=== PATIENT | female | born 1975 | race Hispanic/Latino ===

== ENCOUNTER 2023-03-02 12:44 | Emergency (ER) | payer BC ==
--- OUTSIDE RECORDS SUMMARY | 2023-03-02 12:50 | XMS REPORT | Continuity of Care Document ---
:1975 Author Organization [facility] t Address [address] [facility] [address] [place] [id number] Care Team Providers Name Role Phone PCP, PATIENT DOES NOT HAVE A Primary Care Physician Unavailkiersten Osman RN, Rosalie Pierson Attending Clinician Ioana Yee LVN Attending Clinician Stefanie Macedo DO Attending Clinician Peterson Kaminski MD Attending Clinician PETERSON KAMINSKI Attending Clinician Unavailable Lab, Adc Fam Pob I Attending Clinician Unavailable Ben Coker Attending Clinician BEN JACKSON Attending Clinician Unavailable Doctor Unassigned, [place] Attending Clinician Unavailable Peterson Kaminski MD Admitting Clinician PETERSON KAMINSKI Admitting Clinician Unavailable Payers Payer Name Policy Type Policy Number Effective Date Expiration Date S ourbenson COVID19 [facility] [id number] 2020 2020 UNINSURED 00:00:00 00:00:00 Problems Condition Condition Condition Status Onset Resolution Last Treating Co mments Source Name Details Category Date Date Treatment Clinician Date Morbid Morbid Disease Active Univers obesity obesity 8-24 [place] mass index 00 [place] of of Branch 40.0-49.9 40.0-49.9 COVID-19 COVID-19 Disease Active Unive rs 8-24 ity of 00:00: [place] [address] [place] [address] Branch Morbid Morbid Disease Active Univers obesity obesity 8-24 [place] of with body [place] mass index 00 Me dical of of Branch 40.0-49.9 40.0-49.9 HTN HTN Diagnosis Active Common (hypertens (hypertens Sp william ion), ion), - [facility] benign benign [facility] Encounter Encounter Diagnosis Active C ommon for for Spirit preventati preventati - [facility] ve adult ve adult [facility] care exam care exam Medi lilibeth with with Center abnormal abnormal findings findings Atypical Atypical Diagnosis Active Com mon chest pain chest pain Sp william - [facility] Adult BMI Adult BMI Diagnosis Active C ommon 50.0-59.9 50.0-59.9 Spir it kg/sq m kg/sq m [facility] Allergies, Adverse Reactions, Alerts Allergy Allergy Status Severity Reaction(s) Onset Inactive Treating Comm ents Source Name Type Date Date Clinician NO KNOWN Drug Active Univers ALLERGIE Class ity of S [facility] Social History Social Habit Start Date Stop Date Quantity Comments Source Exposure to Yes [facility]-CoV-2 [facility] (event) [place] Tobacco use and 2020-11-24 2020-11-24 Never used Universit y of exposure 00:00:00 00:00:00 [facility] Alcohol intake 2020-11-24 2020-11-24 Ex-drinker [facility] 00:00:00 00:00:00 (finding) [facility] Sex Ass[birth year] Universit y of 00:00:00 00:00:00 [facility] Smoking Status Start Date Stop Date Source Unknown if ever smoked Universit y of [facility] Never smoker [facility] Medications Ordered Filled Start Stop Current Ordering Indication Dosage Frequency Signature Comments Components Source Medication Medication Date Date Medication? Clinician (SIG) Name Name enoxaparin Yes 40mg 40 mg, Unive rs (LOVENOX) 11-27 Subcutaneo ity of injection 01:00: us, Q12H, [place] 40 mg 00 First dose Medical on [place] 11/26/20 at 1999, Until Discontinu ed, Routine enoxaparin 2020-0 Yes 40mg 40 mg, Unive rs (LOVENOX) 8-27 Subcutaneo ity of injection 01:00: us, Q12H, [place] as 40 mg 00 First dose Medical on [place] Branch 11/26/20 at 1999, Until Discontinu ed, Routine cholecalcif 2020-0 Yes [id number] 1999U Take 2 Univers kulwinder, 8-27 tablets by ity of vitamin D3, 00:00: mouth [place] 25 mcg 00 daily. Medical (1,000 Branch unit) tablet zinc 2020-0 Yes [id number] 220mg Take 1 Univer s sulfate 50 8-27 capsule by ity of mg zinc 00:00: mouth [place] (220 mg) 00 daily. Medical capsule Branch cholecalcif 2020-0 Yes [id number] 1999U Take 2 Univers kulwinder, 8-27 tablets by ity of vitamin D3, 00:00: mouth [place] 25 mcg 00 daily. Medical (1,000 Branch unit) tablet zinc 2020-0 Yes [id number] 220mg Take 1 Univer s sulfate 50 8-27 capsule by ity of mg zinc 00:00: mouth [place] (220 mg) 00 daily. Medical capsule Branch cholecalcif 2020-0 Yes [id number] 2000U Take 2 Univers kulwinder, 8-27 tablets by ity of vitamin D3, 00:00: mouth [place] 25 mcg 00 daily. Medical (1,000 Branch unit) tablet zinc 2020-0 Yes [id number] 220mg Take 1 Univer s sulfate 50 8-27 capsule by ity of mg zinc 00:00: mouth [place] (220 mg) 00 daily. Medical capsule Branch cholecalcif 2020-0 Yes [id number] 2000U Take 2 Univers kulwinder, 8-27 tablets by ity of vitamin D3, 00:00: mouth [place] 25 mcg 00 daily. Medical (1,000 Branch unit) tablet zinc 1-0 Yes [id number] 220mg Take 1 Univer s sulfate 50 8-27 capsule by ity of mg zinc 00:00: mouth [place] (220 mg) 00 daily. Medical capsule Branch cholecalcif 2020-0 Yes [id number] 2000U Take 2 Univers kulwinder, 8-27 tablets by ity of vitamin D3, 00:00: mouth [place] 25 mcg 00 daily. Medical (1,000 Branch unit) tablet zinc 2020-0 Yes [id number] 220mg Take 1 Univer s sulfate 50 8-27 capsule by ity of mg zinc 00:00: mouth [place] (220 mg) 00 daily. Medical capsule Branch cholecalcif 2020-0 Yes [id number] 2000U Take 2 Univers kulwinder, 8-27 tablets by ity of vitamin D3, 00:00: mouth [place] 25 mcg 00 daily. Medical (1,000 Branch unit) tablet zinc 2020-0 Yes [id number] 220mg Take 1 Univer s sulfate 50 8-27 capsule by ity of mg zinc 00:00: mouth [place] (220 mg) 00 daily. Medical capsule Branch cholecalcif 2020-0 Yes [id number] 2000U Take 2 Univers kulwinder, 8-27 tablets by ity of vitamin D3, 00:00: mouth [place] 25 mcg 00 daily. Medical (1,000 Branch unit) tablet zinc 2020-0 Yes [id number] 220mg Take 1 Univer s sulfate 50 8-27 capsule by ity of mg zinc 00:00: mouth [place] (220 mg) 00 daily. Medical capsule Branch cholecalcif 2020-0 Yes [id number] 2000U Take 2 Univers kulwinder, 8-27 tablets by ity of vitamin D3, 00:00: mouth [place] 25 mcg 00 daily. Medical (1,000 Branch unit) tablet zinc 2020-0 Yes [id number] 220mg Take 1 Univer s sulfate 50 8-27 capsule by ity of mg zinc 00:00: mouth [place] (220 mg) 00 daily. Medical capsule Branch cholecalcif 2020-0 Yes [id number] 2000U Take 2 Univers kulwinder, 8-27 tablets by ity of vitamin D3, 00:00: mouth [place] 25 mcg 00 daily. Medical (1,000 Branch unit) tablet zinc 1-0 Yes [id number] 220mg Take 1 Univer s sulfate 50 8-27 capsule by ity of mg zinc 00:00: mouth [place] (220 mg) 00 daily. Medical capsule Branch cholecalcif 2020-0 Yes [id number] 2000U Take 2 Univers kulwinder, 8-27 tablets by ity of vitamin D3, 00:00: mouth [place] 25 mcg 00 daily. Medical (1,000 Branch unit) tablet zinc 2021-0 Yes [id number] 220mg Take 1 Univer s sulfate 50 8-27 capsule by ity of mg zinc 00:00: mouth [place] (220 mg) 00 daily. Medical capsule Branch cholecalcif 0 Yes [id number] 2000U Take 2 Univers kulwinder, 8-27 tablets by ity of vitamin D3, 00:00: mouth [place] 25 mcg 00 daily. Medical (1,000 Branch unit) tablet zinc 0 Yes [id number] 220mg Take 1 Univer s sulfate 50 8-27 capsule by ity of mg zinc 00:00: mouth [place] (220 mg) 00 daily. Medical capsule Branch ascorbic Yes [id number] 1000mg Take 1 U nivers acid, 8-26 tablet by ity of vitamin C, 00:00: mouth [place] 1,000 mg 00 daily. Medical tablet Branch glipiZIDE Yes [id number] 10mg Take 1 Un jc 10 mg 8-26 tablet by ity of tablet 00:00: mouth 2 [place] (two) Medical times Branch daily before breakfast and dinner. metFORMIN Yes [id number] 500mg Take 1 U nivers 500 mg 8-26 tablet by ity of tablet 00:00: mouth 2 (two) Medical times Branch daily with meals. atorvastati Yes [id number] 20mg Take 1 Univers n 20 mg 8-26 tablet by ity of tablet 00:00: mouth at [place] 00 bedtime. Medical Branch ascorbic 0 Yes [id number] 1000mg Take 1 U nivers acid, 8-26 tablet by ity of vitamin C, 00:00: mouth [place] 1,000 mg 00 daily. Medical tablet Branch glipiZIDE Yes [id number] 10mg Take 1 Un jc 10 mg 8-26 tablet by ity of tablet 00:00: mouth 2 [place] (two) Medical times Branch daily before breakfast and dinner. metFORMIN 0 Yes [id number] 500mg Take 1 U nivers 500 mg 8-26 tablet by ity of tablet 00:00: mouth 2 (two) Medical times Branch daily with meals. atorvastati 0 Yes [id number] 20mg Take 1 Univers n 20 mg 8-26 tablet by ity of tablet 00:00: mouth at [place] 00 bedtime. Medical Branch ascorbic 0 Yes [id number] 1000mg Take 1 U nivers acid, 8-26 tablet by ity of vitamin C, 00:00: mouth [place] 1,000 mg 00 daily. Medical tablet Branch glipiZIDE 0 Yes [id number] 10mg Take 1 Un jc 10 mg 8-26 tablet by ity of tablet 00:00: mouth 2 (two) Medical times Branch daily before breakfast and dinner. metFORMIN 0 Yes [id number] 500mg Take 1 U nivers 500 mg 8-26 tablet by ity of tablet 00:00: mouth 2 [place] (two) Medical times Branch daily with meals. atorvastati Yes [id number] 20mg Take 1 Univers n 20 mg 8-26 tablet by ity of tablet 00:00: mouth at [place] 00 bedtime. Medical Branch ascorbic 0 Yes [id number] 1000mg Take 1 U nivers acid, 8-26 tablet by ity of vitamin C, 00:00: mouth [place] 1,000 mg 00 daily. Medical tablet Branch glipiZIDE Yes [id number] 10mg Take 1 Un jc 10 mg 8-26 tablet by ity of tablet 00:00: mouth [place] (two) Medical times Branch daily before breakfast and dinner. metFORMIN 0 Yes [id number] 500mg Take 1 U nivers 500 mg 8-26 tablet by ity of tablet 00:00: mouth [place] (two) Medical times Branch daily with meals. atorvastati 0 Yes [id number] 20mg Take 1 Univers n 20 mg 8-26 tablet by ity of tablet 00:00: mouth at [place] 00 bedtime. Medical Branch ascorbic 2020-0 Yes [id number] 1000mg Take 1 U nivers acid, 8-26 tablet by ity of vitamin C, 00:00: mouth [place] 1,000 mg 00 daily. Medical tablet Branch glipiZIDE 0 Yes [id number] 10mg Take 1 Un jc 10 mg 8-26 tablet by ity of tablet 00:00: mouth 2 [place] (two) Medical times Branch daily before breakfast and dinner. metFORMIN 2020-0 Yes [id number] 500mg Take 1 U nivers 500 mg 8-26 tablet by ity of tablet 00:00: mouth 2 (two) Medical times Branch daily with meals. atorvastati Yes [id number] 20mg Take 1 Univers n 20 mg 8-26 tablet by ity of tablet 00:00: mouth at [place] 00 bedtime. Medical Branch ascorbic 0 Yes [id number] 1000mg Take 1 U nivers acid, 8-26 tablet by ity of vitamin C, 00:00: mouth [place] 1,000 mg 00 daily. Medical tablet Branch glipiZIDE Yes [id number] 10mg Take 1 Un jc 10 mg 8-26 tablet by ity of tablet 00:00: mouth 2 (two) Medical times Branch daily before breakfast and dinner. metFORMIN Yes [id number] 500mg Take 1 U nivers 500 mg 8-26 tablet by ity of tablet 00:00: mouth 2 (two) Medical times Branch daily with meals. atorvastati Yes [id number] 20mg Take 1 Univers n 20 mg 8-26 tablet by ity of tablet 00:00: mouth at [place] 00 bedtime. Medical Branch ascorbic Yes [id number] 1000mg Take 1 U nivers acid, 8-26 tablet by ity of vitamin C, 00:00: mouth [place] 1,000 mg 00 daily. Medical tablet Branch glipiZIDE Yes [id number] 10mg Take 1 Un jc 10 mg 8-26 tablet by ity of tablet 00:00: [place] (two) Medical times Branch daily before breakfast and dinner. metFORMIN Yes [id number] 500mg Take 1 U nivers 500 mg 8-26 tablet by ity of tablet 00:00: mouth 2 (two) Medical times Branch daily with meals. atorvastati Yes [id number] 20mg Take 1 Univers n 20 mg 8-26 tablet by ity of tablet 00:00: mouth at [place] 00 bedtime. Medical Branch ascorbic Yes [id number] 1000mg Take 1 U nivers acid, 8-26 tablet by ity of vitamin C, 00:00: mouth [place] 1,000 mg 00 daily. Medical tablet Branch glipiZIDE 2021-0 Yes [id number] 10mg Take 1 Un jc 10 mg 8-26 tablet by ity of tablet 00:00: mouth 2 (two) Medical times Branch daily before breakfast and dinner. metFORMIN 2020-0 Yes [id number] 500mg Take 1 U nivers 500 mg 8-26 tablet by ity of tablet 00:00: mouth 2 (two) Medical times Branch daily with meals. atorvastati 2020-0 Yes [id number] 20mg Take 1 Univers n 20 mg 8-26 tablet by ity of tablet 00:00: mouth at [place] 00 bedtime. Medical Branch ascorbic 2020-0 Yes [id number] 1000mg Take 1 U nivers acid, 8-26 tablet by ity of vitamin C, 00:00: mouth [place] 1,000 mg 00 daily. Medical tablet Branch glipiZIDE 0 Yes [id number] 10mg Take 1 Un jc 10 mg 8-26 tablet by ity of tablet 00:00: mouth [place] (two) Medical times Branch daily before breakfast and dinner. metFORMIN 2020-0 Yes [id number] 500mg Take 1 U nivers 500 mg 8-26 tablet by ity of tablet 00:00: mouth [place] (two) Medical times Branch daily with meals. atorvastati 0 Yes [id number] 20mg Take 1 Univers n 20 mg 8-26 tablet by ity of tablet 00:00: mouth at [place] 00 bedtime. Medical Branch ascorbic 2020-0 Yes [id number] 1000mg Take 1 U nivers acid, 8-26 tablet by ity of vitamin C, 00:00: mouth [place] 1,000 mg 00 daily. Medical tablet Branch glipiZIDE 0 Yes [id number] 10mg Take 1 Un jc 10 mg 8-26 tablet by ity of tablet 00:00: mouth (two) Medical times Branch daily before breakfast and dinner. metFORMIN 2020-0 Yes [id number] 500mg Take 1 U nivers 500 mg 8-26 tablet by ity of tablet 00:00: mouth 2 (two) Medical times Branch daily with meals. atorvastati 2020-0 Yes [id number] 20mg Take 1 Univers n 20 mg 8-26 tablet by ity of tablet 00:00: mouth at [place] 00 bedtime. Medical Branch ascorbic Yes [id number] 1000mg Take 1 U nivers acid, 8-26 tablet by ity of vitamin C, 00:00: mouth [place] 1,000 mg 00 daily. Medical tablet Branch glipiZIDE Yes [id number] 10mg Take 1 Un jc 10 mg 8-26 tablet by ity of tablet 00:00: mouth 2 [place] 00 (two) Medical times Branch daily before breakfast and dinner. metFORMIN Yes [id number] 500mg Take 1 U nivers 500 mg 8-26 tablet by ity of tablet 00:00: mouth 2 [place] 00 (two) Medical times Branch daily with meals. atorvastati Yes [id number] 20mg Take 1 Univers n 20 mg 8-26 tablet by ity of tablet 00:00: mouth at [place] 00 bedtime. Medical Branch KCL 20 mEq 2020- No [id number] 20meq Take 1 Univers tablet 11-26 tablet by ity of 00:00: 04:59 mouth [place] 00 :00 daily for Medical 7 days. Branch KCL 20 mEq 2020- No [id number] 20meq Take 1 Univers tablet 11-26 tablet by ity of 00:00: 04:59 mouth [place] 00 :00 daily for Medical 7 days. Branch KCL 20 mEq 2020- No [id number] 20meq Take 1 Univers tablet 11-26 tablet by ity of 00:00: 04:59 mouth [place] 00 :00 daily for Medical 7 days. Branch KCL 20 mEq 2020- No [id number] 20meq Take 1 Univers tablet 11-26 tablet by ity of 00:00: 04:59 mouth [place] 00 :00 daily for Medical 7 days. Branch KCL 20 mEq 0 2020- No [id number] 20meq Take 1 Univers tablet 11-26 tablet by ity of 00:00: 04:59 mouth [place] 00 :00 daily for Medical 7 days. Branch KCL 20 mEq 0 2020- No [id number] 20meq Take 1 Univers tablet 11-26 tablet by ity of 00:00: 04:59 mouth [place] 00 :00 daily for Medical 7 days. Branch KCL 20 mEq 2020- No [id number] 20meq Take 1 Univers tablet 11-26 tablet by ity of 00:00: 04:59 mouth [place] 00 :00 daily for Medical 7 days. Branch KCL 20 mEq 2020- No [id number] 20meq Take 1 Univers tablet 11-26 tablet by ity of 00:00: 04:59 mouth [place] 00 :00 daily for Medical 7 days. Branch KCL 20 mEq 2020- No [id number] 20meq Take 1 Univers tablet 11-26 tablet by ity of 00:00: 04:59 mouth [place] 00 :00 daily for Medical 7 days. Branch KCL 20 mEq 2020- No [id number] 20meq Take 1 Univers tablet 11-26 tablet by ity of 00:00: 04:59 mouth [place] 00 :00 daily for Medical 7 days. Branch cholecalcif Yes 1000U 1,000 [facility] ers kulwinder 8-25 Units, ity of (vitamin 14:00: Oral, [place] D3) tablet 00 DAILY, Medical 1,000 Units First dose Br anch on Mon11/25/20 at 0900, Until Discontinu ed, Routine zinc Yes 220mg 220 mg, Univers sulfate 8-25 Oral, ity of (ORAZINC) 14:00: DAILY, [place] capsule 220 00 First dose Me dical mg on Mon11/25/20 at 0900, Until Discontinu ed, Routine cholecalcif Yes 1000U 1,000 [facility] ers kulwinder 8-25 Units, ity of (vitamin 14:00: Oral, [place] D3) tablet 00 DAILY, Medical 1,000 Units First dose Br anch on Mon11/25/20 at 0900, Until Discontinu ed, Routine zinc Yes 220mg 220 mg, Univers sulfate 8-25 Oral, ity of (ORAZINC) 14:00: DAILY, [place] capsule 220 00 First dose Me dical mg on Mon11/25/20 at 0900, Until Discontinu ed, Routine enoxaparin 2020- No 40mg 40 mg, [facility] ers (LOVENOX) 11-25 Subcutaneo ity of injection 14:00: 20:09 us, DAILY, [place] 40 mg 00 :35 First dose Medical on Mon11/25/20 at 0900, Until Discontinu ed, Routine enoxaparin No 40mg 40 mg, Univ ers (LOVENOX) 11-25 Subcutaneo ity of injection 14:00: 20:09 us, DAILY, [place] 40 mg 00 :35 First dose Medical on Mon11/25/20 at 0900, Until Discontinu ed, Routine ascorbic Yes 500mg 500 mg, Unive rs acid 8-25 Oral, BID, ity of (vitamin C) 13:00: First dose [place] (VITAMIN C) 00 on Mon Medica l tablet 500 11/25/20 at [facility] mg 0800, Until Discontinu ed, Routine ascorbic Yes 500mg 500 mg, Unive rs acid 8-25 Oral, BID, ity of (vitamin C) 13:00: First dose [place] (VITAMIN C) 00 on Mon Medica l tablet 500 11/25/20 at [facility] mg 0800, Until Discontinu ed, Routine insulin NPH Yes 15U 15 Units, U nivers and regular 11-25 Subcutaneo it y of human 70-30 12:30: , [place], [place] (HUMULIN 00 First dose Medic al 70-30 U-100 on Mon INSULIN) 11/25/20 at 100 unit/mL 0730, (70-30) Until injection Discontinu 15 Units ed, Routine insulin NPH Yes 15U 15 Units, U nivers and regular 11-25 Subcutaneo it y of human 70-30 12:30: us, [place], [place] (HUMULIN 00 First dose Medic al 70-30 U-100 on Mon INSULIN) 11/25/20 at 100 unit/mL 0730, (70-30) Until injection Discontinu 15 Units ed, Routine albuterol-i Yes 1{puff} 1 Puff, Univers pratropium 11-25 Inhalation ity of (COMBIVENT 05:00: , Q6H, [place] RESPIMAT) 00 First dose Medi lilibeth 20-100 on Mon mcg/actuati 11/25/20 at on inhaler 0000, 1 Puff Until Discontinu ed, Routine
Is this order for a patient with suspected or confirmed COVID-19 infection? Yes albuterol-i Yes 1{puff} 1 Puff, Univers pratropium 8-25 Inhalation ity of (COMBIVENT 05:00: , Q6H, [place] RESPIMAT) 00 First dose Medi lilibeth 20-100 on Mon Branch mcg/actuati 11/25/20 at on inhaler 0000, 1 Puff Until Discontinu ed, Routine
Is this order for a patient with suspected or confirmed COVID-19 infection? Yes codeine-gua Yes 5mL 5 mL, Unive rs ifenesin 8-25 Oral, ity of (ROBITUSSIN 01:05: Q6HPRN, Charlie as AC) 10100 31 Starting Medic al mg/5 mL Tue Branch solution 5 11/24/20 at mL 2004, Until Discontinu ed, Routine, Cough codeine-gua 0 Yes 5mL 5 mL, Unive rs ifenesin 25 Oral, ity of (ROBITUSSIN 01:05: Q6HPRN, [place] as AC) 10 31 Starting Medic al mg/5 mL Tue Branch solution 5 11/24/20 at mL 2004, Until Discontinu ed, Routine, Cough Sliding 0 Yes Subcutaneo Univ ers Scale 8-25 us, Q4H, ity of Insulin - 01:00: First dose [place] Lispro 00 on [facility] (HumaLOG) + 11/24/20 at [facility] 1999, Testing Until Discontinu ed, Routine Sliding Yes Subcutaneo Univ ers Scale 8-25 us, Q4H, ity of Insulin - 01:00: First dose [place] Lispro 00 on Mon Medical (HumaLOG) + 11/24/20 at [facility] 1999, Testing Until Discontinu ed, Routine acetaminoph Yes 650mg 650 mg, Un jc en 11-24 Oral, ity of (TYLENOL) 23:52: Q6HPRN, [place] tablet 650 56 Starting Medic al mg Tue Branch 11/24/20 at 1852, Until Discontinu ed, Routine, Pain (scale 1-3) acetaminoph Yes 650mg 650 mg, Un jc en 11-24 Oral, ity of (TYLENOL) 23:52: Q6HPRN, [place] tablet 650 56 Starting Medic al mg Tue Branch 11/24/20 at 1852, Until Discontinu ed, Routine, Pain (scale 1-3) glucagon Yes 1mg 1 mg, Univers (GLUCAGEN 24 Intramuscu ity of DIAGNOSTIC 23:50: [place], PRN, [place] KIT) 47 Starting Medical injection 1 Tue Branch mg 11/24/20 at 1850, Until Discontinu ed, SHAMIKA, Blood Glucose < or = 70 mg/dL and patient is unable to swallow or has mental changes. dextrose 50 Yes 25mL 25 mL, Univ ers % in water 11-24 Slow IV ity of (D50W) 23:50: Push, PRN, [place] injection 47 Starting Medica l 25 mL Tue Branch 11/24/20 at 1850, Until Discontinu ed, SHAMIKA, Blood Glucose < or = 70 mg/dL and patient is unable to swallow or has mental status changes. glucagon Yes 1mg 1 mg, Univers (GLUCAGEN 11-24 Intramuscu ity of DIAGNOSTIC 23:50: [place], PRN, [place] KIT) 47 Starting Medical injection 1 Tue Branch mg 11/24/20 at 1850, Until Discontinu ed, SHAMIKA, Blood Glucose < or = 70 mg/dL and patient is unable to swallow or has mental changes. dextrose 50 0 Yes 25mL 25 mL, Univ ers % in water 11-24 Slow IV ity of (D50W) 23:50: Push, PRN, [place] injection 47 Starting Medica l 25 mL Tue Branch 11/24/20 at 1850, Until Discontinu ed, SHAMIKA, Blood Glucose < or = 70 mg/dL and patient is unable to swallow or has mental status changes. insulin 2020- No 10U 10 Units, Univ ers regular 11-24 08-24 Slow IV ity of human 22:45: 21:48 Push, [place] (HUMULIN R) 00 :00 ONCE, 1 Medic al injection dose, Tue Branc h 10 Units 11/24/20 at 1745, Routine insulin 2020-0 2020- No 10U 10 Units, [facility] ers regular 11-24- Slow IV ity of human 22:45: 21:48 Push, [place] (HUMULIN R) 00 :00 ONCE, 1 Medic al injection dose, Tue Branc h 10 Units 11/24/20 at 1745, Routine NaCl 0.9% 202-0 Yes 1000mL at 100 Univ ers (NS) IV 8-24 mL/hr, IV ity of infusion 22:30: Infusion, [place] 1,000 mL 00 CONTINUOUS Medic al , Starting Branch [facility] 11/24/20 at 1730, Until Discontinu ed, Routine NaCl 0.9% 2020-0 Yes 1000mL at 100 Univ ers (NS) IV 8-24 mL/hr, IV ity of infusion 22:30: Infusion, [place] 1,000 mL 00 CONTINUOUS Medic al , Starting Branch [facility] 11/24/20 at 1730, Until Discontinu ed, Routine insulin 2020-2020- No 10U 10 Units, [facility] regular 11-24- Slow IV ity of human 20:15: 19:37 [place] (HUMULIN R) 00 :00 ONCE, 1 Medic al injection dose, Tue Branc h 10 Units 11/24/20 at 1515, Routine insulin 2020-2020- No 10U 10 Units, [facility] regular 11-24- Slow IV ity of human 20:15: 19:37 [facility], [place] (HUMULIN R) 00 :00 ONCE, 1 Medic al injection dose, Tue Branc h 10 Units 11/24/20 at 1515, Routine iopamidol 2020-0 2020- No [id number] 100mL 100 mL, Univers (ISOVUE 8-24 08-24 Intravenou ity o f 370-500 mL) 19:19: 19:20 s, ONCE, 1 [place] injection 00 :00 dose, Tue Medic al 100 mL 11/24/20 at Branch 1430, Routine iopamidol 2020-0 2020- No [id number] 100mL 100 mL, Univers (ISOVUE 8-24 08-24 Intravenou ity o f 370-500 mL) 19:19: 19:20 s, ONCE, 1 [place] injection 00 :00 dose, Tue Medic al 100 mL 11/24/20 at Branch 1430, Routine NaCl 0.9% 2020- No 1000mL at 999 Uni vers (NS) bolus - 08-24 mL/hr, ity of infusion 19:15: 21:27 1,000 mL, [place] as 1,000 mL 00 :00 IV Medical Piggyback, [place] ONCE, 1 dose, 11/24/20 at 1415, STAT NaCl 0.9% 2020- No 1000mL at 999 Uni vers (NS) bolus 8- 08-24 mL/hr, ity of infusion 19:15: 21:27 1,000 mL, [place] 1,000 mL 00 :00 IV Medical Piggyback, Branch ONCE, 1 dose, 11/24/20 at 1415, STAT Lisinopril Lisinopril Yes [place] 1 tablet Common 5-03 [facility] 00:00: - [facility] 00 [facility] Aspirin 81 Aspirin 81 Yes [place] 1 tablet Common [facility] Vital Signs Vital Name Observation Time Observation Value Comments Source Systolic blood 2020-11-26 21:00:00 123 [facility]Hg[facility] Diastolic blood 2020-11-26 21:00:00 79 mm[Hg] [facility] Heart rate 2020-11-26 21:00:00 85 /min [facility] Body temperature 2020-11-26 21:00:00 36.22 [place] [facility] Respiratory rate 2020-11-26 21:00:00 18 /min [facility] Oxygen saturation in 2020-11-26 21:00:00 91 /min [facility] Arterial blood by [facility] Pulse oximetry Branch Body weight 2020-11-26 09:12:00 117.981 kg [facility] BMI 2020-11-26 09:12:00 44.65 kg/m2 [facility] Body height 2020-11-25 00:29:00 162.6 cm [facility] Procedures Procedure Date / Time Performing Clinician Source Performed POCT GLUCOSE (AUTOMATED) 2020-11-26 21:35:00 Peterson Kaminski [facility] POCT GLUCOSE (AUTOMATED) 2020-11-26 16:21:00 Peterson Kaminski [facility] POCT GLUCOSE (AUTOMATED) 2020-11-26 12:52:00 Peterson Kaminski [facility] BASIC METABOLIC PANEL 2020-11-26 09:54:00 Peterson Kaminski [facility] (NA, K, CL, CO2, GLUCOSE, Medica l Branch BUN, CREATININE, CA) CBC WITH DIFF 2020-11-26 09:54:00 Umberto [facility] POCT GLUCOSE (AUTOMATED) 2020-11-26 09:11:00 Peterson Kaminski [facility] POCT GLUCOSE (AUTOMATED) 2020-11-26 04:33:00 Peterson Kaminski [facility] POCT GLUCOSE (AUTOMATED) 2020-11-26 01:06:00 Peterson Kaminski [facility] POCT GLUCOSE (AUTOMATED) 2020-11-25 21:52:00 Peterson Kaminski [facility] POCT GLUCOSE (AUTOMATED) 2020-11-25 16:14:00 Peterson Kaminski [facility] POCT GLUCOSE (AUTOMATED) 2020-11-25 13:06:00 Peterson Kaminski [facility] CBC WITH DIFF 2020-11-25 10:05:00 Peterson Kaminski [facility] MAGNESIUM 2020-11-25 10:04:00 Umberto [facility] HEPATIC FUNCTION PANEL 2020-11-25 10:04:00 [facility] ([id number] (ALB,T.PRO,BILI Medical Branch T,BU/BC,ALT,AST,ALK PHOS) BASIC METABOLIC PANEL 2020-11-25 10:04:00 Peterson Kaminski [facility] (NA, K, CL, CO2, GLUCOSE, Medica l Branch BUN, CREATININE, CA) LACTIC ACID WHOLE BLOOD 2020-11-25 10:04:00 Katerine [facility] POCT GLUCOSE (AUTOMATED) 2020-11-25 09:58:00 Peterson Kaminski [facility] LACTIC ACID WHOLE BLOOD 2020-11-25 06:00:[address] [facility] [place] [place] [facility]SE (AUTOMATED) 2020-11-25 05:49:00 Peterson Kaminski [facility] LACTIC ACID WHOLE BLOOD 2020-11-25 02:20:00 Katerine [facility] PHOSPHORUS 2020-11-25 01:42:00 [facility] LACTATE DEHYDROGENASE 2020-11-25 01:42[facility]00 [facility] 2020-11-25 01:42:00 [facility] C-REACTIVE PROTEIN 2020-11-25 01:42:00 [facility] 2020-11-25 01:42:00 Katerine [facility] (NA, K, CL, CO2, GLUCOSE, Medica l Branch BUN, CREATININE, CA) PROCALCITONIN 2020-11-25 01:41:00 [facility] 2020-11-25 01:09:00 Peterson Kaminski [facility] POCT GLUCOSE (AUTOMATED) 2020-11-24 22:42:00 Peterson Kaminski [facility] POCT GLUCOSE (AUTOMATED) 2020-11-24 20:56:00 Stefanie Macedo [facility] POCT GLUCOSE (AUTOMATED) 2020-11-24 20:23:00 Stefanie Macedo [facility] CT CHEST PULMONARY 2020-11-24 19:27:10 Stefanie Macedo [facility] ANGIOGRAM [facility] [place] URINALYSIS 2020-11-24 18:38:00 Stefanie Macedo [facility] XR CHEST 1 VW 2020-11-24 18:32:13 Stefanie Macedo [facility] COVID-19 (ID NOW RAPID 2020-11-24 18:16:00 Stefanie Macedo [facility] TESTING) Medical Branch LAB ONLY COVID 2020-11-24 18:16:00 Stefanie Macedo [facility] INTERPRETATION [facility] AC PANEL 21 + LACTIC ACID 2020-11-24 18:15:00 Stefanie Macedo [facility] TROPONIN I 2020-11-24 18:14:00 Stefanie Macedo [facility] HEPATIC FUNCTION PANEL 2020-11-24 18:14:00 Stefanie Macedo [facility] ([id number]) (ALB,T.PRO,BILI Medical Branch T,BU/BC,ALT,AST,ALK PHOS) BASIC METABOLIC PANEL 2020-11-24 18:14:00 Stefanie Macedo [facility] (NA, K, CL, CO2, GLUCOSE, Medica l Branch BUN, CREATININE, CA) CBC WITH DIFF 2020-11-24 18:14:00 Stefanie Macedo [facility] GLYCOSYLATED HEMOGLOBIN 2020-11-24 18:14:00 Stefanie Macedo [facility] (A1C) [facility] D-DIMER 2020-11-24 18:14:00 Stefanie Macedo [facility] N-TERMINAL PRO-BNP 2020-11-24 18:14:00 Stefanie Macedo [facility] POCT GLUCOSE (AUTOMATED) 2020-11-24 18:12:00 Stefanie Macedo [facility] EKG-12 LEAD 2020-11-24 18:05:34 Stefanie Macedo [facility] Encounters Start End Encounter Admission Attending Care Care Encounter Source Date/Time Date/Time Type Type Clinicians Facility Department ID 2021-02-01 Emergency [facility] [id number] [facility]-02-02 2021-02-02 Patient Rosalie Osman [id number] Univers 00:00:00 00:00:00 Outreach E BUSBY [id number] i [id number] [address] 2020-12-02 2020-12-02 Patient Rosalie Osman [id number] Univers 00:00:00 00:00:00 Outreach E Bus[place] [id number] [id number] [address] 2020-11-30 2020-11-30 Transition Veda Yee 1.2.840.114 [id number] Univers 00:00:00 00:00:00 of Care Ioana Busby [id number] [place] [id number] [address] 2020-11-27 2020-11-27 Patient Rosalie Osman 1.2.840.114 [id number] Univers 00:00:00 00:00:00 Outreach E [place] [id number] [place] [phone] [address] 2020-11-27 2020-11-27 Transition Veda Yee 1.2.840.114 [id number] Univers 00:00:00 00:00:00 of Care Ioana Busby [id number] [place] [id number] [address] 2020-11-24 2020-11-26 Hospital Stefanie Macedo [facility] 1.2.84 0.114 [id number] Univers 13:06:00 18:22:00 Encounter Peterson Kaminski [id number] [place] [id number] [place] [address] Branch 2020-11-24 2020-11-26 Inpatient Anuradha KAMINSKI MABLADE RIYA [id number] Univers 13:06:00 18:22:00 PETERSON ortiz [facility] 2020-11-14 2020-11-14 Laboratory Lab, Adc Fam Pob I [facility] 1.2. [id number] [id number] Univers 09:54:15 10:14:15 Only Ben Jackson [facility] 350.1.13.10 ity of [place] 4.2.7.2.686 Charlie as Professio [phone] [address] Office Building One 2020-11-14 2020-11-14 Outpatient Marci JACKSON [facility] [id number] [facility] 10:00:00 10:00:00 RANIA ity [facility] 2020-11-14 2020-11-14 Letter Doctor JOYCE [id number] Univers 00:00:00 00:00:00 (Out) Unassigned, PARAM 350.1.13.10 [facility] 4.2.7.2.686 [place] as [phone] [address] 2017-08-03 2017-08-03 [facility] [id number] Common 08:45:00 08:45:00 t ZeaKal [facility] it [facility] 2017-07-04 2017-07-04 [facility] [id number] Common 08:45:00 08:45:00 t ZeaKal [facility] it [facility] Results Test Description Test Time Test Comments Results Result Comments Source POCT GLUCOSE (AUTOMATED) 2020-11-26 22:27:18 Test Item Value Reference Range Interpretation Comme nts POCT GLU (test code = 6459031512) 264 mg/dL 70-110 H Lab Interpretation (test code = 94235-0) Abnormal [facility] GLUCOSE (AUTOMATED)2020-11-26 22:27:18 Test Item Value Reference Range Interpretation Comments POCT GLU (test code = 5884254209) 264 mg/dL 70-110 H Lab Interpretation (test code = Abnormal 29539-6) [facility] GLUCOSE (AUTOMATED)2020-11-26 22:04:24 Test Item Value Reference Range Interpretation Comments POCT GLU (test code = 4661704831) 264 mg/dL 70-110 H Lab Interpretation (test code = Abnormal 64076-9) [facility] GLUCOSE (AUTOMATED)2020-11-26 22:04:24 Test Item Value Reference Range Interpretation Comments POCT GLU (test code = 7616650381) 264 mg/dL 70-110 H Lab Interpretation (test code = Abnormal 90459-8) [facility] GLUCOSE (AUTOMATED)2020-11-26 16:45:50 Test Item Value Reference Range Interpretation Comments POCT GLU (test code = 3455067222) 315 mg/dL 70-110 H Lab Interpretation (test code = Abnormal 85943-3) [facility] GLUCOSE (AUTOMATED)2020-11-26 16:45:50 Test Item Value Reference Range Interpretation Comments POCT GLU (test code = 8583891983) 315 mg/dL 70-110 H Lab Interpretation (test code = Abnormal 19724-7) [facility] GLUCOSE (AUTOMATED)2020-11-26 14:24:04 Test Item Value Reference Range Interpretation Comments POCT GLU (test code = 1728090970) 236 mg/dL 70-110 H Lab Interpretation (test code = Abnormal 10808-2) [facility] GLUCOSE (AUTOMATED)2020-11-26 14:24:04 Test Item Value Reference Range Interpretation Comments POCT GLU (test code = 9512761865) 236 mg/dL 70-110 H Lab Interpretation (test code = Abnormal 11423-4) [facility] METABOLIC PANEL (NA, K, CL, CO2, GLUCOSE, BUN, CREATININE, CA)2020-11-26 11:48:22 Test Item Value Reference Range Interpretation Comments NA (test code = 140 mmol/L 135-145 2911947341) K (test code = 3.3 mmol/L 3.5-5.0 L 3788868933) CL (test code = 102 mmol/L 98-108 6126209187) CO2 TOTAL (test code = 30 mmol/L 23-31 3869341816) AGAP (test code = 2-16 7419517395) BUN (test code = 10 mg/dL 7-23 8358319513) GLUCOSE (test code = 239 mg/dL 70-110 H 0041315065) CREATININE (test code = 0.41 mg/dL 0.50-1.04 L 1159900709) CALCIUM (test code = 8.8 mg/dL 8.6-10.6 2614945347) eGFR (test code = mL/min/1.73m2 0138773312) KERI (test code = KERI) Association of Glomerular Filtration Rate (GFR) and Staging of Kidney Disease* + --+ --+ ------+| GFR (mL/min/1.73 m2) ?| With Kidney Damage ?| ?Without Kidney Damage+ --------+ --------+ +| ?>90 ?| ?Stage one ?| ? Normal ?+ ---+ ---+ -------+| ?60-89 ?| ?Stage two ?| ? Decreased GFR ? + --+ --+ ------+| ?30-59 ?| ?Stage three ?| ? Stage three ? + --+ --+ ------+| ?15-29 ?| ?Stage four ? | ? Stage four ?+ ---+ ---+ -------+| ?<15 (or dialysis) ? ?| ?Stage five ? | ? Stage five ?+ ---+ ---+ -------+ *Each stage assumes the associated GFR level has been in effect for at least three months. ?Stages 1 to 5, with or without kidney disease, indicate chronic kidney disease. Notes: Determination of stages one and two (with eGFR >59mL/min/1.73 m2) requires estimation of kidney damage for at least three months as defined by structural or functional abnormalities of the kidney, manifested by either:Pathological abnormalities or Markers of kidney damage (including abnormalities in the composition of the blood or urine or abnormalities in imaging tests). Lab Interpretation Abnormal (test code = 08963-4) [facility] METABOLIC PANEL (NA, K, CL, CO2, GLUCOSE, BUN, CREATININE, CA)2020-11-26 11:48:22 Test Item Value Reference Range Interpretation Comments NA (test code = 2528286875) 140 mmol/L 135-145 K (test code = 6974683308) 3.3 mmol/L 3.5-5.0 L CL (test code = 4347510752) 102 mmol/L 98-108 CO2 TOTAL (test code = 2077516478) 30 mmol/L 23-31 AGAP (test code = 4781263109) 2-16 BUN (test code = 0130299380) 10 mg/dL 7-23 GLUCOSE (test code = 6856252585) 239 mg/dL 70-110 H CREATININE (test code = 0.41 mg/dL 0.50-1.04 L 1191263617) CALCIUM (test code = 6983809447) 8.8 mg/dL 8.6-10.6 eGFR (test code = 5796439348) mL/min/1.73m2 KERI (test code = KERI) Lab Interpretation (test code = Abnormal 44328-2) [facility] WITH [id number] 11:27:57 Test Item Value Reference Range Interpretation Comments WBC (test code = See_Comment H [Automated 6690-2) message] The sy stem which generated this result transmitted reference range : 4.30 - 11.10 10*3/?L. The reference range was not used to interpret this result as normal/abnormal . RBC (test code = See_Comment [Automated 789-8) message] The sy stem which generated this result transmitted reference range : 3.93 - 5.25 10*6/?L. The reference range was not used to interpret this result as normal/abnormal . HGB (test code = 13.8 g/dL 11.6-15.0 718-7) HCT (test code = 43.1 % 35.7-45.2 4544-3) MCV (test code = 85.2 fL 80.6-95.5 787-2) MCH (test code = 27.3 pg 25.9-32.8 785-6) MCHC (test code = 32.0 g/dL 31.6-35.1 786-4) RDW-SD (test code = 39.7 fL 39.0-49.9 66765-0) RDW-CV (test code = 12.9 % 12.0-15.5 788-0) PLT (test code = See_Comment H [Automated 777-3) message] The sy stem which generated this result transmitted reference range : 166 - 358 10*3/ ?L. The reference r glynn was not used to interpret this result as normal/abnormal . MPV (test code = 11.6 fL 9.5-12.9 59584-3) NRBC/100 WBC (test See_Comment [Automat ed code = 9373694817) message] The system which generated this result transmitted reference range : 0.0 - 10.0 /100 WBCs. The refer ence range was not u sed to interpret th is result as normal/abnormal . NRBC x10^3 (test code <0.01 See_Comment [Auto mated = 1636642305) message] The s ystem which generated this result transmitted reference range : 10*3/?L. The reference range was not used to interpret this result as normal/abnormal . GRAN MAT (NEUT) % 70.1 % (test code = 770-8) IMM GRAN % (test code 1.10 % = 4239932158) LYMPH % (test code = 16.5 % 736-9) MONO % (test code = 9.1 % 5905-5) EOS % (test code = 2.8 % 713-8) BASO % (test code = 0.4 % 706-2) GRAN MAT x10^3(ANC) 9.68 10*3/uL 1.88-7.09 H (test code = 2453680504) IMM GRAN x10^3 (test 0.15 10*3/uL 0.00-0.06 H code = 3158058593) LYMPH x10^3 (test code 2.27 10*3/uL 1.32-3.29 = 731-0) MONO x10^3 (test code 1.25 10*3/uL 0.33-0.92 H = 742-7) EOS x10^3 (test code = 0.39 10*3/uL 0.03-0.39 711-2) BASO x10^3 (test code 0.05 10*3/uL 0.01-0.07 = 704-7) Lab Interpretation Abnormal (test code = 22037-0) [facility] WITH [id number] 11:27:57 Test Item Value Reference Range Interpretation Comments WBC (test code = See_Comment H [Automated 7590-2) message] The sy stem which generated this result transmitted reference range : 4.30 - 11.10 10*3/?L. The reference range was not used to interpret this result as normal/abnormal . RBC (test code = See_Comment [Automated 499-8) message] The sy stem which generated this result transmitted reference range : 3.93 - 5.25 10*6/?L. The reference range was not used to interpret this result as normal/abnormal . HGB (test code = 13.8 g/dL 11.6-15.0 718-7) HCT (test code = 43.1 % 35.7-45.2 4544-3) MCV (test code = 85.2 fL 80.6-95.5 787-2) MCH (test code = 27.3 pg 25.9-32.8 785-6) MCHC (test code = 32.0 g/dL 31.6-35.1 786-4) RDW-SD (test code = 39.7 fL 39.0-49.9 96637-6) RDW-CV (test code = 12.9 % 12.0-15.5 788-0) PLT (test code = See_Comment H [Automated 777-3) message] The sy stem which generated this result transmitted reference range : 166 - 358 10*3/ ?L. The reference r glynn was not used to interpret this result as normal/abnormal . MPV (test code = 11.6 fL 9.5-12.9 83628-4) NRBC/100 WBC (test See_Comment [Automat ed code = 1419580812) message] The system which generated this result transmitted reference range : 0.0 - 10.0 /100 WBCs. The refer ence range was not u sed to interpret th is result as normal/abnormal . NRBC x10^3 (test code <0.01 See_Comment [Auto mated = 5857507276) message] The s ystem which generated this result transmitted reference range : 10*3/?L. The reference range was not used to interpret this result as normal/abnormal . GRAN MAT (NEUT) % 70.1 % (test code = 770-8) IMM GRAN % (test code 1.10 % = 3962804727) LYMPH % (test code = 16.5 % 736-9) MONO % (test code = 9.1 % 5905-5) EOS % (test code = 2.8 % 713-8) BASO % (test code = 0.4 % 706-2) GRAN MAT x10^3(ANC) 9.68 10*3/uL 1.88-7.09 H (test code = 1467009476) IMM GRAN x10^3 (test 0.15 10*3/uL 0.00-0.06 H code = 7690849343) LYMPH x10^3 (test code 2.27 10*3/uL 1.32-3.29 = 731-0) MONO x10^3 (test code 1.25 10*3/uL 0.33-0.92 H = 742-7) EOS x10^3 (test code = 0.39 10*3/uL 0.03-0.39 711-2) BASO x10^3 (test code 0.05 10*3/uL 0.01-0.07 = 704-7) Lab Interpretation Abnormal (test code = 11486-8) [facility] GLUCOSE (AUTOMATED)2020-11-26 04:39:15 Test Item Value Reference Range Interpretation Comments POCT GLU (test code = 2807895823) 242 mg/dL 70-110 H Lab Interpretation (test code = Abnormal 39560-8) [facility] GLUCOSE (AUTOMATED)2020-11-26 04:39:15 Test Item Value Reference Range Interpretation Comments POCT GLU (test code = 3358321077) 242 mg/dL 70-110 H Lab Interpretation (test code = Abnormal 32537-3) [facility] GLUCOSE (AUTOMATED)2020-11-26 01:23:19 Test Item Value Reference Range Interpretation Comments POCT GLU (test code = 5158133437) 356 mg/dL 70-110 H Lab Interpretation (test code = Abnormal 86803-7) [facility] GLUCOSE (AUTOMATED)2020-11-26 01:23:19 Test Item Value Reference Range Interpretation Comments POCT GLU (test code = 3886756451) 356 mg/dL 70-110 H Lab Interpretation (test code = Abnormal 24455-5) [facility] GLUCOSE (AUTOMATED)2020-11-25 21:56:08 Test Item Value Reference Range Interpretation Comments POCT GLU (test code = 6231811793) 362 mg/dL 70-110 H Lab Interpretation (test code = Abnormal 97345-4) [facility] GLUCOSE (AUTOMATED)2020-11-25 21:56:08 Test Item Value Reference Range Interpretation Comments POCT GLU (test code = 3239030954) 362 mg/dL 70-110 H Lab Interpretation (test code = Abnormal 44041-3) [facility] [id number] 21:20:07COVID DMT InterpretationInterpretation/Recommendations:Molecular NAAT Tests for Active Infection with the SARS-CoV-2 Virus:The current test result is positive for the SARS-CoV-2 virus that causes COVID-19 illness. The patient should be considered infectious at this time. The patient may be considered no longer infectious when it has been at least 10 days since symptom onset, the patient has been afebrile for 24 hours without the use of fever-reducing medications, AND other symptoms of COVID-19 are improving. However, in patients who have been severely ill with COVID-19 or are severely immunocompromised, isolation up to 20 days after symptom onset is recommended. Asymptomatic patients are considered infectious for the first 10 days subsequent to the initial positive test result. From the onset of symptoms, if any, this result is likely to remain positive up to 2-4 weeks. Tests for IgM and/or IgG Antibodies to the SARS-CoV-2 Virus:Testing for IgM and IgG antibodies approximately 3 weeks after illness onset will likely indicate if the patient has produced antibodies to the SARS-CoV-2 virus. However, some patients may take longer to develop detectable antibodies, while others infected with SARS-CoV-2 may never develop antibodies, particularly those who have had mild or asymptomatic illness. Of no te, if the patient has been vaccinated earlier than 1-2 weeks prior to antibody testing, any positive SARS-CoV-2 IgG antibody result is likely due to vaccination. The specific duration and strength of immunity from SARS-CoV-2 IgG antibodies is highly variable between individuals and is dependent on a variety of factors, including infection vs. vaccination response, initial infection severity, the strength of the patient's own immune system, and the variants to which the patient has been exposed. ? -- Interpretation Result Comments:These interpretation comments are based upon all COVID-19 testing the patient has had at [facility], including molecular NAAT testing (more commonly known as PCR testing and Rapid ID Now testing) and antibody testing. It does not take into account any testing that a patient has had outside of the [facility] medical record. [facility] LABORATORY SERVICESCOVID IsjvpioVUXP-OrC-4 NAAT (no units) ? ? Date ? Value ? 11/14/2020 ? Not Detected ? SARS-CoV-2 Rapid ID NOW (no units) ? ? Date ? Value ? 11/24/2020 ? Positive (A) ? [facility] COVID [id number] 21:20:07COVID DMT InterpretationInterpretation/Recommendations:Molecular NAAT Tests for Active Infection with the SARS-CoV-2 Virus:The current test result is positive for the SARS-CoV-2 virus that causes COVID-19 illness. The patient should be considered infectious at this time. The patient may be considered no longer infectious when it has been at least 10 days since symptom onset, the patient has been afebrile for 24 hours without the use of fever-reducing medications, AND other symptoms of COVID-19 are improving. However, in patients who have been severely ill with COVID-19 or are severely immunocompromised, isolation up to 20 days after symptom onset is recommended. Asymptomatic patients are considered infectious for the first 10 days subsequent to the initial positive test result. From the onset of symptoms, if any, this result is likely to remain positive up to 2-4 weeks. Tests for IgM and/or IgG Antibodies to the SARS-CoV-2 Virus:Testing for IgM and IgG antibodies approximately 3 weeks after illness onset will likely indicate if the patient has produced antibodies to the SARS-CoV-2 virus. Edinson ortiz, some patients may take longer to develop detectable antibodies, while others infected with SARS-CoV-2 may never develop antibodies, particularly those who have had mild or asymptomatic illness. Of note, if the patient has been vaccinated earlier than 1-2 weeks prior to antibody testing, any positive SARS-CoV-2 IgG antibody result is likely due to vaccination. The specific duration and strength of immunity from SARS-CoV-2 IgG antibodies is highly variable between individuals and is dependent on a variety of factors, including infection vs. vaccination response, initial infection severity, the strength of the patient's own immune system, and the variants to which the patient has been exposed. ? -- Interpretation Result Comments:These interpretation comments are based upon all COVID-19 testing the patient has had at [facility], including molecular NAAT testing (more commonly known as PCR testing and Rapid ID Now testing) and antibody testing. It does not take into account any testing that a patient has had outside of the [facility] medical record. [facility] LABORATORY SERVICESCOVID BegwkhjFHRY-AzO-6 NAAT (no units) ? ? Date ? Value ? 11/14/2020 ? Not Detected ? SARS-CoV-2 Rapid ID NOW (no units) ? ? Date ? Value ? 11/24/2020 ? Positive (A) ? [facility]2020-11-25 16:57:11 Test Item Value Reference Range Interpretation Comments POCT GLU (test code = 0956317574) 419 mg/dL 70-110 H Lab Interpretation (test code = Abnormal 64519-9) [facility] GLUCOSE (AUTOMATED)2020-11-25 16:57:11 Test Item Value Reference Range Interpretation Comments POCT GLU (test code = 4784281570) 419 mg/dL 70-110 H Lab Interpretation (test code = Abnormal 95239-5) [facility] [id number] 16:20:18 Test Item Value Reference Range Interpretation Comments CRP (test code = 6065645559) 4.0 mg/dL <0.8 H Lab Interpretation (test code = Abnormal 14593-1) [facility] [id number] 16:20:18 Test Item Value Reference Range Interpretation Comments CRP (test code = 9060990474) 4.0 mg/dL <0.8 H Lab Interpretation (test code = Abnormal 68002-5) [facility] GLUCOSE (AUTOMATED)2020-11-25 13:30:13 Test Item Value Reference Range Interpretation Comments POCT GLU (test code = 4947617481) 383 mg/dL 70-110 H Lab Interpretation (test code = Abnormal 21106-7) [facility] GLUCOSE (AUTOMATED)2020-11-25 13:30:13 Test Item Value Reference Range Interpretation Comments POCT GLU (test code = 4255505902) 383 mg/dL 70-110 H Lab Interpretation (test code = Abnormal 22018-9) [facility] GLUCOSE (AUTOMATED)2020-11-25 13:13:37 Test Item Value Reference Range Interpretation Comments POCT GLU (test code = 0024880435) 395 mg/dL 70-110 H Lab Interpretation (test code = Abnormal 94891-6) [facility] GLUCOSE (AUTOMATED)2020-11-25 13:13:37 Test Item Value Reference Range Interpretation Comments POCT GLU (test code = 1733757797) 395 mg/dL 70-110 H Lab Interpretation (test code = Abnormal 79029-2) [facility] GLUCOSE (AUTOMATED)2020-11-25 12:05:10 Test Item Value Reference Range Interpretation Comments POCT GLU (test code = 5660482702) 422 mg/dL 70-110 H Lab Interpretation (test code = Abnormal 62893-1) [facility] GLUCOSE (AUTOMATED)2020-11-25 12:05:10 Test Item Value Reference Range Interpretation Comments POCT GLU (test code = 8028824706) 422 mg/dL 70-110 H Lab Interpretation (test code = Abnormal 40146-9) [facility] GLUCOSE (AUTOMATED)2020-11-25 12:04:26 Test Item Value Reference Range Interpretation Comments POCT GLU (test code = 7451110560) 495 mg/dL 70-110 HH Lab Interpretation (test code = Abnormal 80986-1) [facility] GLUCOSE (AUTOMATED)2020-11-25 12:04:26 Test Item Value Reference Range Interpretation Comments POCT GLU (test code = 3224215779) 495 mg/dL 70-110 HH Lab Interpretation (test code = Abnormal 14028-0) [facility] GLUCOSE (AUTOMATED)2020-11-25 12:04:10 Test Item Value Reference Range Interpretation Comments POCT GLU (test code = 1582135671) 556 mg/dL 70-110 HH Lab Interpretation (test code = Abnormal 94693-8) [facility] GLUCOSE (AUTOMATED)2020-11-25 12:04:10 Test Item Value Reference Range Interpretation Comments POCT GLU (test code = 1395611912) 556 mg/dL 70-110 HH Lab Interpretation (test code = Abnormal 10905-5) [id number] Test Item Value Reference Range Interpretation Comments MAGNESIUM (test code = 1372870754) 2.2 mg/dL 1.7-2.4 Lab Interpretation (test code = Normal 94843-3) [facility] Qxabr2460-03-73 10:40:08 Test Item Value Reference Range Interpretation Comments MAGNESIUM (test code = 6159731241) 2.2 mg/dL 1.7-2.4 Lab Interpretation (test code = Normal 07554-6) [facility] Metabolic Panel (NA, K, CL, CO2, GLUCOSE, BUN, CREATININE, CA)2020-11-25 10:39:53 Test Item Value Reference Range Interpretation Comments NA (test code = 143 mmol/L 135-145 5181265526) K (test code = 3.9 mmol/L 3.5-5.0 5656806629) CL (test code = 105 mmol/L 98-108 3439033642) CO2 TOTAL (test code = 27 mmol/L 23-31 2711232186) AGAP (test code = 2-16 9941632117) BUN (test code = 13 mg/dL 7-23 1877285285) GLUCOSE (test code = 404 mg/dL 70-110 H 4387915978) CREATININE (test code = 0.46 mg/dL 0.50-1.04 L 0442978855) CALCIUM (test code = 9.3 mg/dL 8.6-10.6 1101627610) eGFR (test code = mL/min/1.73m2 3276557822) KERI (test code = KERI) Association of Glomerular Filtration Rate (GFR) and Staging of Kidney Disease* + --+ --+ ------+| GFR (mL/min/1.73 m2) ?| With Kidney Damage ?| ?Without Kidney Damage+ --------+ --------+ +| ?>90 ?| ?Stage one ?| ? Normal ?+ ---+ ---+ -------+| ?60-89 ?| ?Stage two ?| ? Decreased GFR ? + --+ --+ ------+| ?30-59 ?| ?Stage three ?| ? Stage three ? + --+ --+ ------+| ?15-29 ?| ?Stage four ? | ? Stage four ?+ ---+ ---+ -------+| ?<15 (or dialysis) ? ?| ?Stage five ? | ? Stage five ?+ ---+ ---+ -------+ *Each stage assumes the associated GFR level has been in effect for at least three months. ?Stages 1 to 5, with or without kidney disease, indicate chronic kidney disease. Notes: Determination of stages one and two (with eGFR >59mL/min/1.73 m2) requires estimation of kidney damage for at least three months as defined by structural or functional abnormalities of the kidney, manifested by either:Pathological abnormalities or Markers of kidney damage (including abnormalities in the composition of the blood or urine or abnormalities in imaging tests). Lab Interpretation Abnormal (test code = 76551-7) [facility] (ALB,T.PRO,BILI T,BU/BC,ALT,AST,ALK PHOS)2020-11-25 10:39:53 Test Item Value Reference Range Interpretation Comments TOTAL BILI (test code = 5434398681) 0.5 mg/dL 0.1-1.1 BILI UNCON (test code = 5272757142) 0.3 mg/dL 0.1-1.1 BILI CONJ (test code = 9754314372) 0.0 mg/dL 0.0-0.3 T PROTEIN (test code = 3408176582) 6.8 g/dL 6.3-8.2 ALBUMIN (test code = 6443811770) 3.4 g/dL 3.5-5.0 L ALK PHOS (test code = 1412679677) 224 U/L 34-122 H ALTv (test code = 1742-6) 21 U/L 5-35 AST(SGOT) (test code = 1620641729) 20 U/L 13-40 Lab Interpretation (test code = Abnormal 13611-3) [facility] (NA, K, CL, CO2, GLUCOSE, BUN, CREATININE, CA)2020-11-25 10:39:53 Test Item Value Reference Range Interpretation Comments NA (test code = 9718211373) 143 mmol/L 135-145 K (test code = 5427554726) 3.9 mmol/L 3.5-5.0 CL (test code = 3765641141) 105 mmol/L 98-108 CO2 TOTAL (test code = 6930569995) 27 mmol/L 23-31 AGAP (test code = 7901066540) 2-16 BUN (test code = 0971583496) 13 mg/dL 7-23 GLUCOSE (test code = 5469778255) 404 mg/dL 70-110 H CREATININE (test code = 0.46 mg/dL 0.50-1.04 L 6111560444) CALCIUM (test code = 0546348674) 9.3 mg/dL 8.6-10.6 eGFR (test code = 1046946336) mL/min/1.73m2 KERI (test code = KERI) Lab Interpretation (test code = Abnormal 24987-4) [facility]34675[facility] (ALB,T.PRO,BILI T,BU/BC,ALT,AST,ALK PHOS)2020-11-25 10:39:53 Test Item Value Reference Range Interpretation Comments TOTAL BILI (test code = 4705839225) 0.5 mg/dL 0.1-1.1 BILI UNCON (test code = 3242154267) 0.3 mg/dL 0.1-1.1 BILI CONJ (test code = 6041138620) 0.0 mg/dL 0.0-0.3 T PROTEIN (test code = 4431239715) 6.8 g/dL 6.3-8.2 ALBUMIN (test code = 9350034215) 3.4 g/dL 3.5-5.0 L ALK PHOS (test code = 2543098441) 224 U/L 34-122 H ALTv (test code = 1742-6) 21 U/L 5-35 AST(SGOT) (test code = 8165383529) 20 U/L 13-40 Lab Interpretation (test code = Abnormal 48989-0) [facility] with Rsnjutlxlipd6781-20-00 10:24:30 Test Item Value Reference Range Interpretation Comments WBC (test code = See_Comment H [Automated 6690-2) message] The system which generated this result transmit ankita reference range : 4.30 - 11.10 10*3/?L. The reference range was not used to interpret this result as normal/abnormal . RBC (test code = See_Comment H [Automated 789-8) message] The system which generated this result transmit ankita reference range : 3.93 - 5.25 10*6/?L. The reference range was not used to interpret this result as normal/abnormal . HGB (test code = 15.0 g/dL 11.6-15.0 718-7) HCT (test code = 45.8 % 35.7-45.2 H 4544-3) MCV (test code = 83.3 fL 80.6-95.5 787-2) MCH (test code = 27.3 pg 25.9-32.8 785-6) MCHC (test code = 32.8 g/dL 31.6-35.1 786-4) RDW-SD (test code = 38.4 fL 39.0-49.9 L 13988-4) RDW-CV (test code = 12.7 % 12.0-15.5 788-0) PLT (test code = See_Comment H [Automated 777-3) message] The system which generated this result transmit ankita reference range : 166 - 358 10*3/ ?L. The reference range was not u sed to interpret th is result as normal/abnormal . MPV (test code = 11.6 fL 9.5-12.9 08534-4) NRBC/100 WBC (test See_Comment [Automat ed code = 0305650564) message] The system which generated this result transmit ankita reference range : 0.0 - 10.0 /100 WBCs. The reference range was not used to interpret this result as normal/abnormal . NRBC x10^3 (test code <0.01 See_Comment [Auto mated = 8257791188) message] The system which generated this result transmit ankita reference range : 10*3/?L. The reference range was not used to interpret this result as normal/abnormal . GRAN MAT (NEUT) % 77.3 % (test code = 770-8) IMM GRAN % (test code 1.20 % = 6848030507) LYMPH % (test code = 11.9 % 736-9) MONO % (test code = 8.3 % 5905-5) EOS % (test code = 1.0 % 713-8) BASO % (test code = 0.3 % 706-2) GRAN MAT x10^3(ANC) 13.31 10*3/uL 1.88-7.09 H (test code = 0770153105) IMM GRAN x10^3 (test 0.20 10*3/uL 0.00-0.06 H code = 2113001497) LYMPH x10^3 (test code 2.04 10*3/uL 1.32-3.29 = 731-0) MONO x10^3 (test code 1.42 10*3/uL 0.33-0.92 H = 742-7) EOS x10^3 (test code = 0.18 10*3/uL 0.03-0.39 711-2) BASO x10^3 (test code 0.06 10*3/uL 0.01-0.07 = 704-7) Lab Interpretation Abnormal (test code = 63174-3) [facility] with Qohlbrcjcvsa8882-51-89 10:24:30 Test Item Value Reference Range Interpretation Comments WBC (test code = See_Comment H [Automated 1290-2) message] The system which generated this result transmit ankita reference range : 4.30 - 11.10 10*3/?L. The reference range was not used to interpret this result as normal/abnormal . RBC (test code = See_Comment H [Automated 279-8) message] The system which generated this result transmit ankita reference range : 3.93 - 5.25 10*6/?L. The reference range was not used to interpret this result as normal/abnormal . HGB (test code = 15.0 g/dL 11.6-15.0 718-7) HCT (test code = 45.8 % 35.7-45.2 H 4544-3) MCV (test code = 83.3 fL 80.6-95.5 787-2) MCH (test code = 27.3 pg 25.9-32.8 785-6) MCHC (test code = 32.8 g/dL 31.6-35.1 786-4) RDW-SD (test code = 38.4 fL 39.0-49.9 L 70817-7) RDW-CV (test code = 12.7 % 12.0-15.5 788-0) PLT (test code = See_Comment H [Automated 777-3) message] The system which generated this result transmit ankita reference range : 166 - 358 10*3/ ?L. The reference range was not u sed to interpret th is result as normal/abnormal . MPV (test code = 11.6 fL 9.5-12.9 71461-3) NRBC/100 WBC (test See_Comment [Automat ed code = 1067572197) message] The system which generated this result transmit ankita reference range : 0.0 - 10.0 /100 WBCs. The reference range was not used to interpret this result as normal/abnormal . NRBC x10^3 (test code <0.01 See_Comment [Auto mated = 9638805778) message] The system which generated this result transmit ankita reference range : 10*3/?L. The reference range was not used to interpret this result as normal/abnormal . GRAN MAT (NEUT) % 77.3 % (test code = 770-8) IMM GRAN % (test code 1.20 % = 7396915500) LYMPH % (test code = 11.9 % 736-9) MONO % (test code = 8.3 % 5905-5) EOS % (test code = 1.0 % 713-8) BASO % (test code = 0.3 % 706-2) GRAN MAT x10^3(ANC) 13.31 10*3/uL 1.88-7.09 H (test code = 0774825562) IMM GRAN x10^3 (test 0.20 10*3/uL 0.00-0.06 H code = 2999726424) LYMPH x10^3 (test code 2.04 10*3/uL 1.32-3.29 = 731-0) MONO x10^3 (test code 1.42 10*3/uL 0.33-0.92 H = 742-7) EOS x10^3 (test code = 0.18 10*3/uL 0.03-0.39 711-2) BASO x10^3 (test code 0.06 10*3/uL 0.01-0.07 = 704-7) Lab Interpretation Abnormal (test code = 07467-1) [facility] Nefbr4330-86-30 10:14:39 Test Item Value Reference Range Interpretation Comments LACTIC ACID (test code = 2.21 mmol/L 0.50-2.20 H 9108750610) Lab Interpretation (test code = Abnormal 17105-9) [facility] Acid Whole Myvdj7949-66-17 10:14:39 Test Item Value Reference Range Interpretation Comments LACTIC ACID (test code = 2.21 mmol/L 0.50-2.20 H 2333900055) Lab Interpretation (test code = Abnormal 77421-6) [facility] 06:55:12 Test Item Value Reference Range Interpretation Comments Procalcitonin (test 0.04 ng/mL <0.07 code = 8855724548) KERI (test code = KERI) INTERPRETATION OF PROCALCITONIN RESULTS IN ADULTS >= 18 YEARS OF AGE Initiation and discontinuation of antibiotics on patients with suspected or confirmed Lower Respiratory Tract Infection in Adults >= 18 years of age. + +-------- --------+ + -----+|Procalcitonin |Interpretation ?|Antibiotic ? ? |Considerations ? |ng/mL ? | ?|recommendation | ? + +-------- --------+ + -----+| <0.1 ? | Bacterial ? ? ?| Strongly ? ? ?| ? | ?| infection very | discouraged ? | Overruling: ? | ?| unlikely ? ? ? | ? | ? Clinically unstable ? ? ? + +-------- --------+ + ? High risk for adverse ? ? | <0.25 ?| Bacterial ? ? ?| Discouraged ? | ? outcome ? | ?| infection ? ? ?| ? | ? SEE IMPORTANT NOTE ?| ?| unlikely ? ? ? | ? | ? + +-------- --------+ + -----+| >=0.25 ? ? ? | Bacterial ? ? ?| Encouraged ? ?| ? | ?| infection ? ? ?| ? | ? | ?| likely ? | ? | Consider treatment failure ?+ +------- ---------+ -+ if levels does not decrease | >0.5 ? | Bacterial ? ? ?| Strongly ? ? ?| appropriately ? | ?| infection very | encouraged ? ?| ? | ?| likely ? | ? | ? + +-------- --------+ + -----+ Discontinuation of antibiotics in high-acuity patients with suspected or confirmed sepsis in Adults >= 18 years of age. + +-------- --------+ + -----+|Procalcitonin |Interpretation ?|Antibiotic ? ? |Considerations ? |ng/mL ? | ?|recommendation | ? + +-------- --------+ + -----+| <0.25 ?| Bacterial ? ? ?| Strongly ? ? ?| ? | ?| infection very | discouraged ? | Overruling: ? | ?| unlikely ? ? ? | ? | ? Clinically unstable ? ? ? + +-------- --------+ + ? High risk for adverse ? ? | <0.5 or drop | Bacterial ? ? ?| Discouraged ? | ? outcome ? | >80% from ? ?| infection ? ? ?| ? | ? SEE IMPORTANT NOTE ?| highest PCT ?| unlikely ? ? ? | ? | ? | level ?| ?| ? | ? + +-------- --------+ + -----+| >=0.5 ?| Bacterial ? ? ?| Encouraged ? ?| ? | ?| infection ? ? ?| ? | ? | ?| likely ? | ? | Consider treatment failure ?+ +------- ---------+ -+ if levels does not decrease | >1.0 ? | Bacterial ? ? ?| Strongly ? ? ?| appropriately ? | ?| infection very | encouraged ? ?| ? | ?| likely ? | ? | ? + +-------- --------+ + -----+ Percentage of drop of Procalcitonin calculation for Discontinuation of antibiotics in high-acuity patients with suspected or confirmed sepsis in Adults >= 18 years of age. ? Procalcitonin highest{}-Procalcitonin current{}Delta Procalcitonin = x100% ? Procalcitonin current {} IMPORTANT NOTE: Procalcitonin may be elevated without bacterial infection by physiologic stress related to trauma, dietrich, chronic dialysis, metastatic cancer, surgery in the past seven days, malaria, some fungal infections, and some forms of vasculitis. The interpretation algorithm may not apply to patients with immunosuppression (equivalent of >10 mg of prednisone daily), HIV with CD4 cell count < 350 cells/mm3, active malignancy on systemic chemotherapy, solid organ transplant or hematopoietic stem cell transplantation, or hospital acquired pneumonia. Additionally, some clinical trials of procalcitonin have excluded patients with shock requiring vasopressor use, acute respiratory failure requiring mechanical ventilation, or those with known lung abscess/empyema. For further information please refer to:[email or web address] Lab Interpretation Normal (test code = 30820-4) [facility] 06:55:12 Test Item Value Reference Range Interpretation Comments Procalcitonin (test code = 0.04 ng/mL <0.07 8793423706) KERI (test code = KERI) Lab Interpretation (test code = Normal 80350-6) [facility] Zhxba8759-96-63 06:20:00 Test Item Value Reference Range Interpretation Comments LACTIC ACID (test code = 2.70 mmol/L 0.50-2.20 H 3678421717) Lab Interpretation (test code = Abnormal 35796-5) [facility] Sshtq4734-26-41 06:20:00 Test Item Value Reference Range Interpretation Comments LACTIC ACID (test code = 2.70 mmol/L 0.50-2.20 H 5782092198) Lab Interpretation (test code = Abnormal 43192-9) [facility] [id number] 02:40:41 Test Item Value Reference Range Interpretation Comments FERRITIN (test code = 477.0 ng/mL 6.0-137.0 H 1568776034) KERI (test code = KERI) Biotin has been reported to cause a negative bias, interpret results relative to patient's use of biotin. Lab Interpretation (test Abnormal code = 27232-7) [facility] [id number] 02:40:41 Test Item Value Reference Range Interpretation Comments FERRITIN (test code = 4333118245) 477.0 ng/mL 6.0-137.0 H KERI (test code = KERI) Lab Interpretation (test code = Abnormal 24907-0) [facility] Wnizx1704-44-99 02:21:52 Test Item Value Reference Range Interpretation Comments LACTIC ACID (test code = 2.56 mmol/L 0.50-2.20 H 5770265939) Lab Interpretation (test code = Abnormal 33830-1) [facility] Alpjn4008-11-94 02:21:52 Test Item Value Reference Range Interpretation Comments LACTIC ACID (test code = 2.56 mmol/L 0.50-2.20 H 0147683107) Lab Interpretation (test code = Abnormal 08578-8) [facility] METABOLIC PANEL (NA, K, CL, CO2, GLUCOSE, BUN, CREATININE, CA)2020-11-25 02:11:32 Test Item Value Reference Range Interpretation Comments NA (test code = 145 mmol/L 135-145 5575500255) K (test code = 4.2 mmol/L 3.5-5.0 1658850572) CL (test code = 106 mmol/L 98-108 9158734154) CO2 TOTAL (test code = 27 mmol/L 23-31 5211163392) AGAP (test code = 2-16 3506420053) BUN (test code = 14 mg/dL 7-23 5344337969) GLUCOSE (test code = 551 mg/dL 70-110 HH 3535177089) CREATININE (test code = 0.46 mg/dL 0.50-1.04 L 6050292602) CALCIUM (test code = 8.9 mg/dL 8.6-10.6 7107107728) eGFR (test code = mL/min/1.73m2 7718659953) KERI (test code = KERI) Association of Glomerular Filtration Rate (GFR) and Staging of Kidney Disease* + --+ --+ ------+| GFR (mL/min/1.73 m2) ?| With Kidney Damage ?| ?Without Kidney Damage+ --------+ --------+ +| ?>90 ?| ?Stage one ?| ? Normal ?+ ---+ ---+ -------+| ?60-89 ?| ?Stage two ?| ? Decreased GFR ? + --+ --+ ------+| ?30-59 ?| ?Stage three ?| ? Stage three ? + --+ --+ ------+| ?15-29 ?| ?Stage four ? | ? Stage four ?+ ---+ ---+ -------+| ?<15 (or dialysis) ? ?| ?Stage five ? | ? Stage five ?+ ---+ ---+ -------+ *Each stage assumes the associated GFR level has been in effect for at least three months. ?Stages 1 to 5, with or without kidney disease, indicate chronic kidney disease. Notes: Determination of stages one and two (with eGFR >59mL/min/1.73 m2) requires estimation of kidney damage for at least three months as defined by structural or functional abnormalities of the kidney, manifested by either:Pathological abnormalities or Markers of kidney damage (including abnormalities in the composition of the blood or urine or abnormalities in imaging tests). Lab Interpretation Abnormal (test code = 80208-0) [facility] METABOLIC PANEL (NA, K, CL, CO2, GLUCOSE, BUN, CREATININE, CA)2020-11-25 02:11:32 Test Item Value Reference Range Interpretation Comments NA (test code = 7233960337) 145 mmol/L 135-145 K (test code = 4053745458) 4.2 mmol/L 3.5-5.0 CL (test code = 9281968817) 106 mmol/L 98-108 CO2 TOTAL (test code = 9083495016) 27 mmol/L 23-31 AGAP (test code = 7938992540) 2-16 BUN (test code = 1837220021) 14 mg/dL 7-23 GLUCOSE (test code = 3223194037) 551 mg/dL 70-110 HH CREATININE (test code = 0.46 mg/dL 0.50-1.04 L 4027529034) CALCIUM (test code = 5514908410) 8.9 mg/dL 8.6-10.6 eGFR (test code = 2127944637) mL/min/1.73m2 KERI (test code = KERI) Lab Interpretation (test code = Abnormal 82918-6) [facility] Zmxlx8780-62-20 02:05:42 Test Item Value Reference Range Interpretation Comments PHOSPHORUS (test code = 2585135893) 4.2 mg/dL 2.5-5.0 Lab Interpretation (test code = Normal 12789-0) [facility] Kwyuw8083-03-45 02:05:42 Test Item Value Reference Range Interpretation Comments PHOSPHORUS (test code = 7146304665) 4.2 mg/dL 2.5-5.0 Lab Interpretation (test code = Normal 81038-5) [facility] [id number] 02:05:00 Test Item Value Reference Range Interpretation Comments LDH (test code = 9162173130) 667 U/L 300-600 H Lab Interpretation (test code = Abnormal 27465-4) [id number] 02:05:00 Test Item Value Reference Range Interpretation Comments LDH (test code = 3067908363) 667 U/L 300-600 H Lab Interpretation (test code = Abnormal 78374-5) [facility] 1 [id number] 22:26:02 Mild burden of multifocal opacities associated with the confirmed diagnosisof COVID-19 pneumonia. Preliminary Report Dictated by Resident: Leo Thakur MD., have reviewed this study and agree with the abovereport.EXAM: XR CHEST 1 VW HISTORY: 45 years-old Female; cough, hypoxia, covid. Confirmed TECHNIQUE: Single frontal view of the chest. COMPARISON: None FINDINGS: The lungs are well expanded. Mixed airspace and interstitial opacities areseen bilaterally, with relative sparing of the upper lobes. No pleuralabnormality is visualized. The cardiomediastinal silhouette is normal accounting for technique. No acute osseous abnormality is present. [facility], Radiant Results Inft User - 11/24 5:27 PM CDT EXAM: XR CHEST 1 VWHISTORY: 45 years-old Female; cough, hypoxia, covid . ConfirmedTECHNIQUE: Single frontal view of the chest.COMPARISON: NoneFINDINGS:The lungs are well expanded. Mixed airspace and interstitial opacities areseen bilaterally, with relative sparing of the upper lobes. No pleuralabnormality is visualized. Thecardiomediastinal silhouette is normal accounting for technique.No acute osseous abnormality is present. IMPRESSIONMild burden of multifocal opacities associated with the confirmed diagnosisof COVID-19pneumonia.Preliminary Report Dictated by Resident: Leo Espinosa MD., have reviewed this study and agree with the abovereport.[facility] [id number] 22:26:02 Mild burden of multifocal opacities associated with the confirmed diagnosisof COVID-19 pneumonia. Preliminary Report Dictated by Resident: Leo Thakur MD., have reviewed this study and agree with the abovereport.EXAM: XR CHEST 1 VW HISTORY: 45 years-old Female; cough, hypoxia, covid. Confirmed TECHNIQUE: Single frontal view of the chest. COMPARISON: None FINDINGS: The lungs are well expanded. Mixed airspace and interstitial opacities areseen bilaterally, with relative sparing of the upper lobes. No pleuralabnormality is visualized. The cardiomediastinal silhouette is normal accounting for technique. No acute osseous abnormality is present. [facility], Radiant Results Inft User - 11/24 5:27 PM CDT EXAM: XR CHEST 1 VWHISTORY: 45 years-old Female; cough, hypoxia, covid . ConfirmedTECHNIQUE: Single frontal view of the chest.COMPARISON: NoneFINDINGS:The lungs are well expanded. Mixed airspace and interstitial opacities areseen bilaterally, with relative sparing of the upper lobes. No pleuralabnormality is visualized. Thecardiomediastinal silhouette is normal accounting for technique.No acute osseous abnormality is present. IMPRESSIONMild burden of multifocal opacities associated with the confirmed diagnosisof COVID-19pneumonia.Preliminary Report Dictated by Resident: Dontrell Brown, Leo Brantley MD., have reviewed this study and agree with the abovereport.[facility] GLUCOSE (AUTOMATED)2020-11-24 22:18:20 Test Item Value Reference Range Interpretation Comments POCT GLU (test code = 3033610719) >600 70-110 HH Lab Interpretation (test code = Abnormal 95749-5) [facility] GLUCOSE (AUTOMATED)2020-11-24 22:18:20 Test Item Value Reference Range Interpretation Comments POCT GLU (test code = >600 70-110 HH Notifi ed Provider [id number]) Lab Interpretation (test Abnormal code = 67585-2) [facility] GLUCOSE (AUTOMATED)2020-11-24 22:18:20 Test Item Value Reference Range Interpretation Comments POCT GLU (test code = 6267757169) >600 70-110 HH Lab Interpretation (test code = Abnormal 90984-7) [facility] GLUCOSE (AUTOMATED)2020-11-24 22:18:20 Test Item Value Reference Range Interpretation Comments POCT GLU (test code = 0031316316) >600 70-110 HH Lab Interpretation (test code = Abnormal 58148-1) [facility] CHEST PULMONARY [id number] 20:19:05 1. No evidence of acute or chronic pulmonary embolism through the level ofthe subsegmental branches. 2. Multifocal moderate to severe airspace disease, compatible with theprovided history of Covid-19 pneumonia. 3. Hepatomegaly with severe hepatic steatosis, partly visualized.Correlation with LFTs recommended. AIDOC (computer aided detection software) confirms no filling defects inthe pulmonary artery branches Mackenzie Mccoy MD., have reviewed this study and agree with theabove report. PROCEDURE: CT CHEST WITH CONTRAST- CHEST PE PROTOCOL CLINICAL INDICATION: PE suspected, intermediate prob, positive D-dimer. Perchart: shortness of breath. Comparison: ?CXR 11/24/2020 TECHNIQUE: Volumetric helical CT angiogram was performed of the chest (lungapices to bases) with IV contrast. Images were reconstructed at 1.25 mmslice thickness. Corresponding axial, sagittal and coronal MIP images wereperformed. Axial MIPs and coronal and sagittal MPR images were generatedand reviewed.. FINDINGS: HEART AND GREAT VESSELS: The opacification of the pulmonary vasculature isappropriate. No filling defects are seen through the level of the segmentalpulmonary arteries.The pulmonary trunk is normal in caliber.The thoracic aorta is normal in caliber. The heart is normal in size. No pericardial abnormalities are identified.The RV to LV is normal. MEDIASTINUM AND LOWER NECK: No central airway lesions are detected. Theesophagus is within normal limits. The included thyroid gland appearsnormal. LYMPH NODES: Mildly prominent left hilar nodes are at least 1.3 cm. Righthilar nodes are about 1 cm. Right infrahilarnodes are about 1.1 cm.Subcentimeter bilateral mediastinal nodes. LUNGS AND PLEURA: Normal lung volumes. Peripheral predominant denseairspace and to lesser degree groundglass opacities of both lungs, appearmost prominently within the lower lobes. Right middle lobe calcifiedgranuloma. No focal opacities are identified. No pleural abnormalities. VISUALIZED UPPER ABDOMEN: Profound low-attenuation of theliver parenchymaeven in this postcontrast evaluation OSSEOUS STRUCTURES AND SOFT TISSUES: Hepatomegaly with hepatic steatosis.Small sliding hiatal area. Nonfocal thickening of the right adrenal glandispartially visualized. [facility], Radiant Results Inft User - 11/24/2020 3:46 PM CDT PROCEDURE: CT CHEST WITH CONTRAST- CHEST PE PROTOCOLCLINICAL INDICATION: PE suspected, intermediate prob, positive D-dimer. Perchart: shortness of breath. Comparison: CXR 11/24/2020TECHNIQUE: Volumetric helical CT angiogram was performed of the chest (lungapices to bases) with IV contrast. Images were reconstructed at 1.25 mmslice thickness. Corresponding axial, sagittal and coronal MIP images wereperformed. Axial MIPs and coronal and sagittal MPR images were generatedand reviewed..FINDINGS:HEART AND GREAT VESSELS: The opacification of the pulmonary vasculatureisappropriate. No filling defects are seen through the level of the segmentalpulmonary arteries.The p ulmonary trunk is normal in caliber.The thoracic aorta is normal in caliber.The heart is normal in size. No pericardial abnormalities are identified.The RV to LV is normal. MEDIASTINUM AND LOWER NECK: No central airway lesions are detected. Theesophagus is within normal limits. The included thyroid gland appearsnormal.LYMPH NODES: Mildly prominent left hilar nodes are at least 1.3 cm. Righthilar nodes are about 1 cm. Right infrahilar nodes are about 1.1 cm.Subcentimeter bilateral mediastinal nodes.LUNGS AND PLEURA: Normal lung volumes. Peripheral predominant denseairspace and to lesser degree groundglass opacities of both lungs, appearmost prominently within the lower lobes. Right middle lobe calcifiedgranuloma. No focal opacities are identified. No pleural abnormalities.VISUALIZED UPPER ABDOMEN:Profound low-attenuation of the liver parenchymaeven in this postcontrast evaluationOSSEOUS STRUCTURES AND SOFT TISSUES: Hepatomegaly with hepatic steatosis.Small sliding hiatal area. Nonfocal thickening of the right adrenal glandis partially visualized.IMPRESSION1. No evidence of acute or chronic pulmonary embolism through the level ofthe subsegmental branches.2. Multifocal moderate to severe airspace disease, compatible with theprovided history of Covid-19 pneumonia.3. Hepatomegaly with severe hepatic steatosis, partly visualized.Correlation with LFTs recommended.AIDOC (computer aided detection software) confirms no filling defects inthe pulmonary artery branchesMackenzie Mccoy MD., have reviewed this study and agree with theabove report.[facility] CHEST PULMONARY [id number] 20:19:05 1. No evidence of acute or chronic pulmonary embolism through the level ofthe subsegmental branches. 2. Multifocal moderate to severe airspace disease, compatible with theprovided history of Covid-19 pneumonia. 3. Hepatomegaly with severe hepatic steatosis, partly visualized.Correlation with LFTs recommended. AIDOC (computer aided detection software) confirms no filling defects inthe pulmonary artery branches Mackenzie Mccoy MD., have reviewed this study and agree with theabove report. PROCEDURE: CT CHEST WITH CONTRAST- CHEST PE PROTOCOL CLINICAL INDICATION: PE suspected, intermediate prob, positive D-dimer. Perchart: shortness of breath. Comparison: ?CXR 11/24/2020 TECHNIQUE: Volumetrichelical CT angiogram was performed of the chest (lungapices to bases) with IV contrast. Images were reconstructed at 1.25 mmslice thickness. Corresponding axial, sagittal and coronal MIP images wereperformed. Axial MIPs and coronal and sagittal MPR images were generatedand reviewed.. FINDINGS: HEART AND GREAT VESSELS: The opacification of the pulmonary vasculature isappropriate. No filling defects are seen through the level of the segmentalpulmonary arteries.The pulmonary trunk is normal in caliber.The thoracic aorta is normal in caliber. The heart is normal in size. No pericardial abnormalities are identified.The RV to LV is normal. MEDIASTINUM AND LOWER NECK: No central airway lesions are detected. Theesophagus is within normal limits. The included thyroid gland appearsnormal. LYMPH NODES: Mildly prominent left hilar nodes are at least 1.3 cm. Righthilar nodes are about 1 cm. Right infrahilarnodes are about 1.1 cm.Subcentimeter bilateral mediastinal nodes. LUNGS AND PLEURA: Normal lung volumes. Peripheral predominant denseairspace and to lesser degree groundglass opacities of both lungs, appearmost prominently within the lower lobes. Right middle lobe calcifiedgranuloma. No focal opacities are identified. No pleural abnormalities. VISUALIZED UPPER ABDOMEN: Profound low-attenuation of theliver parenchymaeven in this postcontrast evaluation OSSEOUS STRUCTURES AND SOFT TISSUES: Hepatomegaly with hepatic steatosis.Small sliding hiatal area. Nonfocal thickening of the right adrenal glandispartially visualized. [facility], Radiant Results Inft User - 11/24/2020 3:46 PM CDT PROCEDURE: CT CHEST WITH CONTRAST- CHEST PE PROTOCOLCLINICAL INDICATION: PE suspected, intermediate prob, positive D-dimer. Perchart: shortness of breath. Comparison: CXR 11/24/2020TECHNIQUE: Volumetric helical CT angiogram was performed of the chest (lungapices to bases) with IV contrast. Images were reconstructed at 1.25 mmslice thickness. Corresponding axial, sagittal and coronal MIP images wereperformed. Axial MIPs and coronal and sagittal MPR images were generatedand reviewed..FINDINGS:HEART AND GREAT VESSELS: The opacification of the pulmonary vasculatureisappropriate. No filling defects are seen through the level of the segmentalpulmonary arteries.The p ulmonary trunk is normal in caliber.The thoracic aorta is normal in caliber.The heart is normal in size. No pericardial abnormalities are identified.The RV to LV is normal. MEDIASTINUM AND LOWER NECK: No central airway lesions are detected. Theesophagus is within normal limits. The included thyroid gland appearsnormal.LYMPH NODES: Mildly prominent left hilar nodes are at least 1.3 cm. Righthilar nodes are about 1 cm. Right infrahilar nodes are about 1.1 cm.Subcentimeter bilateral mediastinal nodes.LUNGS AND PLEURA: Normal lung volumes. Peripheral predominant denseairspace and to lesser degree groundglass opacities of both lungs, appearmost prominently within the lower lobes. Right middle lobe calcifiedgranuloma. No focal opacities are identified. No pleural abnormalities.VISUALIZED UPPER ABDOMEN:Profound low-attenuation of the liver parenchymaeven in this postcontrast evaluationOSSEOUS STRUCTURES AND SOFT TISSUES: Hepatomegaly with hepatic steatosis.Small sliding hiatal area. Nonfocal thickening of the right adrenal glandis partially visualized.IMPRESSION1. No evidence of acute or chronic pulmonary embolism through the level ofthe subsegmental branches.2. Multifocal moderate to severe airspace disease, compatible with theprovided history of Covid-19 pneumonia.3. Hepatomegaly with severe hepatic steatosis, partly visualized.Correlation with LFTs recommended.AIDOC (computer aided detection software) confirms no filling defects inthe pulmonary artery branchesMackenzie Mccoy MD., have reviewed this study and agree with theabove report.[facility] GLUCOSE (AUTOMATED)2020-11-24 19:49:29 Test Item Value Reference Range Interpretation Comments POCT GLU (test code = 2843292057) >600 70-110 HH Lab Interpretation (test code = Abnormal 89048-8) [facility]2020-11-24 19:49:29 Test Item Value Reference Range Interpretation Comments POCT GLU (test code = 1509798011) >600 70-110 HH Lab Interpretation (test code = Abnormal 41126-2) [facility] (A1C)2020-11-24 19:37:05 Test Item Value Reference Range Interpretation Comments HGB A1C (test code = >14.0 4.0-5.7 H 4548-4) KERI (test code = KERI) Reference RangesNormal: <5.7%Prediabetes: 5.7 - 6.4%Diabetes: > 6.5% Lab Interpretation (test Abnormal code = 07122-3) [facility]A1C)2020-11-24 19:37:05 Test Item Value Reference Range Interpretation Comments HGB A1C (test code = 4548-4) >14.0 4.0-5.7 H KERI (test code = KERI) Lab Interpretation (test code = Abnormal 49835-5) [facility] 19:08:30 Test Item Value Reference Range Interpretation Comments APPEARANCE (test code = Clear Clear 0401439630) COLOR (test code = Straw Yellow A 9145924025) PH (test code = 4.8-8.0 8982087701) SP GRAVITY (test code = 1.003-1.030 H 2911917834) GLU U QUAL (test code = 500 mg/dL Normal A 7145365929) BLOOD (test code = 2+ Negative A 4439335210) KETONES (test code = 5 mg/dL Negative A 8141951724) PROTEIN (test code = Negative Negative 2887-8) UROBILIN (test code = Normal Normal 1566211105) BILIRUBIN (test code = Negative Negative 7959692873) NITRITE (test code = Negative Negative 4413203522) LEUK BARB (test code = 25/uL Negative A 3180058064) RBC/HPF (test code = See_Comment H [Autom ated message] 4523101983) The system [employer] generated this result transmit ankita reference range : 0 - 3 HPF. The refe rence range was not u sed to interpret th is result as normal/abnormal . WBC/HPF (test code = See_Comment [Autom ated message] 4615748085) The system [employer] generated this result transmit ankita reference range : 0 - 5 HPF. The refe rence range was not u sed to interpret th is result as normal/abnormal . BACTERIA (test code = Few Negative A 1566689388) SQ EPITH (test code = <1 HPF 8926603211) Lab Interpretation (test Abnormal code = 14465-7) [facility] 19:08:30 Test Item Value Reference Range Interpretation Comments APPEARANCE (test code = Clear Clear 7852105999) COLOR (test code = Straw Yellow A 0647966895) PH (test code = 4.8-8.0 7921197594) SP GRAVITY (test code = 1.003-1.030 H 6580653937) GLU U QUAL (test code = 500 mg/dL Normal A 2686019505) BLOOD (test code = 2+ Negative A 5816820779) KETONES (test code = 5 mg/dL Negative A 5746730551) PROTEIN (test code = Negative Negative 2887-8) UROBILIN (test code = Normal Normal 7275866257) BILIRUBIN (test code = Negative Negative 2036414262) NITRITE (test code = Negative Negative 1651570721) LEUK BARB (test code = 25/uL Negative A 9766848842) RBC/HPF (test code = See_Comment H [Autom ated message] 1111016325) The system [employer] generated this result transmit ankita reference range : 0 - 3 HPF. The refe rence range was not u sed to interpret th is result as normal/abnormal . WBC/HPF (test code = See_Comment [Autom ated message] 3540126386) The system [employer] generated this result transmit ankita reference range : 0 - 5 HPF. The refe rence range was not u sed to interpret th is result as normal/abnormal . BACTERIA (test code = Few Negative A 1539271958) SQ EPITH (test code = <1 HPF 0063415906) Lab Interpretation (test Abnormal code = 44186-0) [facility] (NA, K, CL, CO2, GLUCOSE, BUN, CREATININE, CA)2020-11-24 18:55:08 Test Item Value Reference Range Interpretation Comments NA (test code = 137 mmol/L 135-145 6083002581) K (test code = 4.8 mmol/L 3.5-5.0 Slight 3132210890) hemolysis CL (test code = 92 mmol/L 98-108 L 7052501365) CO2 TOTAL (test code 28 mmol/L 23-31 = 4937547797) AGAP (test code = 2-16 H 3227238757) BUN (test code = 18 mg/dL 7-23 Slight 7914777820) hemolysis GLUCOSE (test code = 1034 mg/dL 70-110 HH 6294555724) CREATININE (test code 0.57 mg/dL 0.50-1.04 = 3505207761) CALCIUM (test code = 9.9 mg/dL 8.6-10.6 2376758155) eGFR (test code = mL/min/1.73m2 6029016254) KERI (test code = KERI) Association of Glomerular Filtration Rate (GFR) and Staging of Kidney Disease* + -----+ --------+ +| GFR (mL/min/1.73 m2) ?| With Kidney Damage ?| ?Without Kidney Damage+ +------- +---- --+| ?>90 ?| ?Stage one ?| ? Normal ?+ ------+ ---------+--------- +| ?60-89 ?| ?Stage two ?| ? Decreased GFR ? + -----+ --------+ +| ?30-59 ?| ?Stage three ?| ? Stage three ? + -----+ --------+ +| ?15-29 ?| ?Stage four ? | ? Stage four ?+ ------+ ---------+--------- +| ?<15 (or dialysis) ? ?| ?Stage five ? | ? Stage five ?+ ------+ ---------+--------- + *Each stage assumes the associated GFR level has been in effect for at least three months. ?Stages 1 to 5, with or without kidney disease, indicate chronic kidney disease. Notes: Determination of stages one and two (with eGFR >59mL/min/1.73 m2) requires estimation of kidney damage for at least three months as defined by structural or functional abnormalities of the kidney, manifested by either:Pathological abnormalities or Markers of kidney damage (including abnormalities in the composition of the blood or urine or abnormalities in imaging tests). Lab Interpretation Abnormal (test code = 13917-0) [facility] (NA, K, CL, CO2, GLUCOSE, BUN, CREATININE, CA)2020-11-24 18:55:08 Test Item Value Reference Range Interpretation Comments NA (test code = 3219043383) 137 mmol/L 135-145 K (test code = 3604534239) 4.8 mmol/L 3.5-5.0 CL (test code = 5582758851) 92 mmol/L 98-108 L CO2 TOTAL (test code = 5692374901) 28 mmol/L 23-31 AGAP (test code = 5938781558) 2-16 H BUN (test code = 1768871310) 18 mg/dL 7-23 GLUCOSE (test code = 8620803243) 1034 mg/dL 70-110 HH CREATININE (test code = 0.57 mg/dL 0.50-1.04 5092239114) CALCIUM (test code = 8991146319) 9.9 mg/dL 8.6-10.6 eGFR (test code = 6725679499) mL/min/1.73m2 KERI (test code = KERI) Lab Interpretation (test code = Abnormal 75211-8) [facility] HospitalTRFORMERLY [facility]NIN [id number] 18:54:52 Test Item Value Reference Interpretation Comments Range TROPONIN I (test <0.012 See_Comment [Automated code = 9028624534) message] The system which generated this result transmitted reference range : <=0.034 ng/mL. The reference range was not used to interpret this result as normal/abnormal . KERI (test code = Reference (Normal) KERI) Range (defined by the 99th percentile reference limit): <= 0.034 ng/mL Note: Cardiac troponin begins to rise 3-4 hours after the onset of ischemia. Repeat in 4-6 hours if the sample was drawn within 3-4 hours of the onset of the symptom and found normal. Diagnosis of myocardial injury is made with acute changes in cTn concentrations with at least one serial sample above the 99th percentile upper reference limit (URL), taken together with the patient's clinical presentation. Biotin has been reported to cause a negative bias, interpret results relative to patient's use of biotin. Lab Interpretation Normal (test code = 91823-9) [facility] HospitalTROPONIN [id number] 18:54:52 Test Item Value Reference Range Interpretation Comments TROPONIN I (test code = <0.012 See_Comment [Au tomated message] 0296885591) The system [employer] generated this result transmitted ref erence range: <=0.034 ng/mL. The reference r glynn was not used to interpret this result as normal/abnor mal. KERI (test code = KERI) Lab Interpretation (test Normal code = 73829-4) [facility] HospitalN-TERMINAL [id number] 18:51:53 Test Item Value Reference Range Interpretation Comments NT-proBNP (test code 50 pg/mL See_Comment [Autom ated = 0007875195) message] The system which generated this result transmitted reference range : <=125. The reference range was not used to interpret this result as normal/abnormal . KERI (test code = KERI) Biotin has been reported to cause a negative bias, interpret results relative to patient's use of biotin. Lab Interpretation Normal (test code = 88879-6) [facility]AL [id number] 18:51:53 Test Item Value Reference Range Interpretation Comments NT-proBNP (test code = 50 pg/mL See_Comment [Aut omated message] 2041639465) The system [employer] generated this result transmitted ref erence range: <=125. T he reference range was not used to int erpret this result as normal/abnormal . KERI (test code = KERI) Lab Interpretation (test Normal code = 87941-1) [facility] HospitalHEPATIC FUNCTION PANEL (61422) (ALB,T.PRO,BILI T,BU/BC,ALT,AST,ALK PHOS)2020-11-24 18:42:55 Test Item Value Reference Range Interpretation Comments TOTAL BILI (test code = 9041192844) 1.0 mg/dL 0.1-1.1 BILI UNCON (test code = 7121276624) 0.6 mg/dL 0.1-1.1 BILI CONJ (test code = 3145788291) 0.0 mg/dL 0.0-0.3 T PROTEIN (test code = 1659690697) 8.0 g/dL 6.3-8.2 ALBUMIN (test code = 9881889024) 4.1 g/dL 3.5-5.0 ALK PHOS (test code = 4262310503) 336 U/L 34-122 H ALTv (test code = 1742-6) 30 U/L 5-35 AST(SGOT) (test code = 1781340930) 26 U/L 13-40 Lab Interpretation (test code = Abnormal 69366-1) [facility] FUNCTION PAN[facility] (24467) (ALB,T.PRO,BILI T,BU/BC,ALT,AST,ALK PHOS)2020-11-24 18:42:55 Test Item Value Reference Range Interpretation Comments TOTAL BILI (test code = 3275813397) 1.0 mg/dL 0.1-1.1 BILI UNCON (test code = 2532318865) 0.6 mg/dL 0.1-1.1 BILI CONJ (test code = 7340726958) 0.0 mg/dL 0.0-0.3 T PROTEIN (test code = 6844201690) 8.0 g/dL 6.3-8.2 ALBUMIN (test code = 5000108874) 4.1 g/dL 3.5-5.0 ALK PHOS (test code = 9736814807) 336 U/L 34-122 H ALTv (test code = 1742-6) 30 U/L 5-35 AST(SGOT) (test code = 9875041081) 26 U/L 13-40 Lab Interpretation (test code = Abnormal 02659-2) [facility] HospitalD-[id number] 18:33:31 Test Item Value Reference Interpretation Comments Range D-DIMER (test code = See_Comment H [Autom ated 9575200771) message] The system which generated this result transmitted reference range : <0.41 ?g/mL (FEU). The reference range was not used to interpret this result as normal/abnormal . KERI (test code = This test may be KERI) used in conjunction with a clinical pretest probability (PTP) assessment model to exclude venous thromboembolism (VTE) in patients suspected of deep venous thrombosis (DVT) and pulmonary embolism (PE) A D-Dimer value less than 0.50 ?g/ml (FEU) has a negative predicative value of 96 to 100% (95% CI)and 97 to 100% (95% CI) as an aid in the diagnosis of deep vein thrombosis (DVT) and pulmonary embolism when there is low or moderate pretest probability of PE or DVT. D-Dimer values are expressed in initial fibrinogen equivalent units (FEU)" The assay results should be used with other information, including the clinical context, in forming a diagnosis. Lab Interpretation Abnormal (test code = 97785-4) [facility]-[id number] 18:33:31 Test Item Value Reference Range Interpretation Comments D-DIMER (test code = See_Comment H [Autom ated message] 7999320538) The system [employer] generated this result transmitted ref erence range: <0.41 ?g /mL (FEU). The refe rence range was not u sed to interpret this result as normal/abnor mal. KERI (test code = KREI) Lab Interpretation (test Abnormal code = 86572-4) [facility]-19 (ID NOW RAPID TESTING)2020-11-24 18:32:50 Test Item Value Reference Range Interpretation Comments SARS-CoV-2 Rapid ID NOW Positive Not Detected A (test code = 48345-3) KERI (test code = KERI) ID NOW COVID-19 Assay is an isothermal nucleic acid amplification test intended for the qualitative detection of nucleic acid from SARS-CoV-2 viral RNA in nasopharyngeal (METROPOLIT[employer]OR) specimens. It is used under Emergency Use Authorization (EUA) by FDA. The limit of detection (LOD) of the assay is 125 Genome Equivalents/mL. A positive result is indicative of the presence of SARS-CoV-2 RNA. ?Clinical correlation with patient history and other diagnostic information is necessary to determine patient infection status. A negative (Not Detected) result does not preclude SARS-CoV-2 infection. In patients with clinical symptoms and other tests that are consistent with SARS-CoV-2 infection, negative results should be treated as presumptive negative and a new specimen should be tested with alternative PCR molecular test. Invalid: Please collect a new specimen for repeat patient testing if clinically indicated. Lab Interpretation Abnormal (test code = 01337-6) [facility]-19 (ID NOW RAPID TESTING)2020-11-24 18:32:50 Test Item Value Reference Range Interpretation Comments SARS-CoV-2 Rapid ID NOW (test code = Positive Not Detected A 06804-7) KERI (test code = KERI) Lab Interpretation (test code = Abnormal 19459-9) [facility] WITH [id number] 18:30:11 Test Item Value Reference Range Interpretation Comments WBC (test code = See_Comment H [Automated 6690-2) message] The sy stem which generated this result transmitted reference range : 4.30 - 11.10 10*3/?L. The reference range was not used to interpret this result as normal/abnormal . RBC (test code = See_Comment H [Automated 789-8) message] The sy stem which generated this result transmitted reference range : 3.93 - 5.25 10*6/?L. The reference range was not used to interpret this result as normal/abnormal . HGB (test code = 15.9 g/dL 11.6-15.0 H 718-7) HCT (test code = 49.9 % 35.7-45.2 H 4544-3) MCV (test code = 85.9 fL 80.6-95.5 787-2) MCH (test code = 27.4 pg 25.9-32.8 785-6) MCHC (test code = 31.9 g/dL 31.6-35.1 786-4) RDW-SD (test code = 39.7 fL 39.0-49.9 78685-3) RDW-CV (test code = 12.9 % 12.0-15.5 788-0) PLT (test code = See_Comment H [Automated 777-3) message] The sy stem which generated this result transmitted reference range : 166 - 358 10*3/ ?L. The reference r glynn was not used to interpret this result as normal/abnormal . MPV (test code = 11.8 fL 9.5-12.9 48367-3) NRBC/100 WBC (test See_Comment [Automat ed code = 9901919231) message] The system which generated this result transmitted reference range : 0.0 - 10.0 /100 WBCs. The refer ence range was not u sed to interpret th is result as normal/abnormal . NRBC x10^3 (test code <0.01 See_Comment [Auto mated = 7699360268) message] The s ystem which generated this result transmitted reference range : 10*3/?L. The reference range was not used to interpret this result as normal/abnormal . GRAN MAT (NEUT) % 80.6 % (test code = 770-8) IMM GRAN % (test code 1.30 % = 6318996800) LYMPH % (test code = 9.8 % 736-9) MONO % (test code = 7.9 % 5905-5) EOS % (test code = 0.1 % 713-8) BASO % (test code = 0.3 % 706-2) GRAN MAT x10^3(ANC) 9.27 10*3/uL 1.88-7.09 H (test code = 6345793162) IMM GRAN x10^3 (test 0.15 10*3/uL 0.00-0.06 H code = 5999735722) LYMPH x10^3 (test code 1.13 10*3/uL 1.32-3.29 L = 731-0) MONO x10^3 (test code 0.91 10*3/uL 0.33-0.92 = 742-7) EOS x10^3 (test code = <0.03 0.03-0.39 L 711-2) BASO x10^3 (test code 0.04 10*3/uL 0.01-0.07 = 704-7) Lab Interpretation Abnormal (test code = 00471-9) [facility] WITH [id number] 18:30:11 Test Item Value Reference Range Interpretation Comments WBC (test code = See_Comment H [Automated 7590-2) message] The sy stem which generated this result transmitted reference range : 4.30 - 11.10 10*3/?L. The reference range was not used to interpret this result as normal/abnormal . RBC (test code = See_Comment H [Automated 019-8) message] The sy stem which generated this result transmitted reference range : 3.93 - 5.25 10*6/?L. The reference range was not used to interpret this result as normal/abnormal . HGB (test code = 15.9 g/dL 11.6-15.0 H 718-7) HCT (test code = 49.9 % 35.7-45.2 H 4544-3) MCV (test code = 85.9 fL 80.6-95.5 787-2) MCH (test code = 27.4 pg 25.9-32.8 785-6) MCHC (test code = 31.9 g/dL 31.6-35.1 786-4) RDW-SD (test code = 39.7 fL 39.0-49.9 45896-4) RDW-CV (test code = 12.9 % 12.0-15.5 788-0) PLT (test code = See_Comment H [Automated 777-3) message] The sy stem which generated this result transmitted reference range : 166 - 358 10*3/ ?L. The reference r glynn was not used to interpret this result as normal/abnormal . MPV (test code = 11.8 fL 9.5-12.9 52161-1) NRBC/100 WBC (test See_Comment [Automat ed code = 5982260885) message] The system which generated this result transmitted reference range : 0.0 - 10.0 /100 WBCs. The refer ence range was not u sed to interpret th is result as normal/abnormal . NRBC x10^3 (test code <0.01 See_Comment [Auto mated = 7049654788) message] The s ystem which generated this result transmitted reference range : 10*3/?L. The reference range was not used to interpret this result as normal/abnormal . GRAN MAT (NEUT) % 80.6 % (test code = 770-8) IMM GRAN % (test code 1.30 % = 2468427652) LYMPH % (test code = 9.8 % 736-9) MONO % (test code = 7.9 % 5905-5) EOS % (test code = 0.1 % 713-8) BASO % (test code = 0.3 % 706-2) GRAN MAT x10^3(ANC) 9.27 10*3/uL 1.88-7.09 H (test code = 7562292640) IMM GRAN x10^3 (test 0.15 10*3/uL 0.00-0.06 H code = 4056127243) LYMPH x10^3 (test code 1.13 10*3/uL 1.32-3.29 L = 731-0) MONO x10^3 (test code 0.91 10*3/uL 0.33-0.92 = 742-7) EOS x10^3 (test code = <0.03 0.03-0.39 L 711-2) BASO x10^3 (test code 0.04 10*3/uL 0.01-0.07 = 704-7) Lab Interpretation Abnormal (test code = 35834-0) [facility] [id number] 18:22:12 Test Item Value Reference Range Interpretation Comments PH (test code = 7.32-7.42 H 4881620044) PCO2 HEAVEN (test code = See_Comment [Auto mated 1383371437) message] The sy stem which generated this result transmitted reference range : 41 - 51 mmHg. The reference range was not used to interpret this result as normal/abnormal . PO2 HEAVEN (test code = See_Comment H [Autom ated 6870825055) message] The sy stem which generated this result transmitted reference range : 25 - 40 mmHg. The reference range was not used to interpret this result as normal/abnormal . HCO3 HEAVEN (test code = See_Comment [Auto mated 4438259123) message] The sy stem which generated this result transmitted reference range : 24 - 28 mEq/L. The reference range was not used to interpret this result as normal/abnormal . AC VBE(BEAKER) (test mEq/L code = 3162857670) THB HEAVEN (test code = 16.5 g/dL 12.0-16.0 H 1240567526) %O2HB HEAVEN (test code = 80.7 % 52.0-63.0 H 5572975611) %COHB HEAVEN (test code = 1.3 % 0.0-1.5 4895487504) %METHB HEAVEN (test code = 0.3 % 0.4-1.5 L 7898287517) VOL%O2 HEAVEN (test code = 18.6 % 6.0-12.0 H 9738544492) NA (test code = 138 mmol/L 135-145 2910325962) K+ (test code = 4.9 mmol/L 3.5-5.0 7716984896) AC CA IONZ (test code = 4.50 mg/dL 4.50-5.30 4810886877) GLUCOSE (test code = unable to read 6820477893) LACTIC ACID (test code 4.76 mmol/L 0.50-2.20 H QUES = 0613225021) Lab Interpretation Abnormal (test code = 33368-9) [facility] [id number] 18:22:12 Test Item Value Reference Range Interpretation Comments PH (test code = 7.32-7.42 H 4784892644) PCO2 HEAVEN (test code = See_Comment [Auto mated 3094052233) message] The sy stem which generated this result transmitted reference range : 41 - 51 mmHg. The reference range was not used to interpret this result as normal/abnormal . PO2 HEAVEN (test code = See_Comment H [Autom ated 9958049697) message] The sy stem which generated this result transmitted reference range : 25 - 40 mmHg. The reference range was not used to interpret this result as normal/abnormal . HCO3 HEAVEN (test code = See_Comment [Auto mated 7037976987) message] The sy stem which generated this result transmitted reference range : 24 - 28 mEq/L. The reference range was not used to interpret this result as normal/abnormal . AC VBE(BEAKER) (test mEq/L code = 1038964323) THB HEAVEN (test code = 16.5 g/dL 12.0-16.0 H 7213084744) %O2HB HEAVEN (test code = 80.7 % 52.0-63.0 H 0540854628) %COHB HEAVEN (test code = 1.3 % 0.0-1.5 2152638279) %METHB HEAVEN (test code = 0.3 % 0.4-1.5 L 3065142521) VOL%O2 HEAVEN (test code = 18.6 % 6.0-12.0 H 9294065284) NA (test code = 138 mmol/L 135-145 2655116420) K+ (test code = 4.9 mmol/L 3.5-5.0 9674019797) AC CA IONZ (test code = 4.50 mg/dL 4.50-5.30 6642234086) GLUCOSE (test code = 4570146734) LACTIC ACID (test code 4.76 mmol/L 0.50-2.20 H = 8909977504) Lab Interpretation Abnormal (test code = 55373-5) [facility]
--- NOTE | 2023-03-02 13:15 | ER ---
Nurse's Notes [facility] Name: Jodie Venegas Age: 47 yrs Sex: Female : 1975 Arrival Date: 03/02/2023 Time: 12:44 Bed IW10 Private MD: Diagnosis: Acute Sinusitis Presentation: 03/02 13:07 Chief complaint: Patient states: possible sinus infetion, started last Monday, nasal ko1 congestion, ears, mouth and eyes hurt. No body aches, no fever. Coronavirus screen: congestion, headache, runny nose, Client presents with at least one sign or symptom that may indicate coronavirus-19. Standard/surgical mask placed on the client. Ebola Screen: No symptoms or risks identified at this time. Initial Sepsis Screen: Does the patient meet any 2 criteria? No. Patient's initial sepsis screen is negative. Does the patient have a suspected source of infection? No. Patient's initial sepsis screen is negative. Risk Assessment: Do you want to hurt yourself or someone else? Patient reports no desire to harm self or others. Onset of symptoms is unknown. 13:07 Method Of Arrival: Ambulatory ko1 13:07 Acuity: CHANTEL 4 ko1 Triage Assessment: 13:11 General: Appears in no apparent distress. ill, Behavior is calm, cooperative, ko1 appropriate for age. Pain: Complains of pain in forehead, right eye, right ear, left ear and left eye. 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 - Social history:: Smoking status: Patient denies any tobacco usage or history of. Screenin:22 [facility] ED Fall Risk Assessment (Adult) History of falling in the last 3 months, cp4 including since admission No falls in past 3 months (0 pts) Confusion or Disorientation No (0 pts) Intoxicated or Sedated No (0 pts) Impaired Gait No (0 pts) Mobility Assist Device Used No (0 pt) Altered Elimination No (0 pt) Score/Fall Risk Level 0 - 2 = Low Risk Oriented to surroundings, Maintained a safe environment, Educated pt \T\ family on fall prevention, incl call for assistance when getting out of bed, Hourly rounding (assess needs \T\ fall precautionary measures) done. Abuse screen: Denies threats or abuse. Nutritional screening: No deficits noted. Tuberculosis screening: No symptoms or risk factors identified. Assessment: 13:22 General: Appears in no apparent distress. Behavior is calm, cooperative, appropriate cp4 for age. Vital Signs: 13:07 BP 155 / 103; Pulse 98; Resp 18; Temp 98.3; Pulse Ox 97% ; ko1 ED Course: 12:47 Patient arrived in ED. im 12:48 Roslyn Luke PA-C is PHCP. sb4 12:48 Mateo Fair MD is Attending Physician. sb4 13:11 Triage completed. ko1 13:11 Arm band placed on right wrist. Patient placed in an exam room, Patient notified of ko1 wait time. 13:22 Fall risk band placed. Provided Education on: sinsusitis. cp4 13:22 No provider procedures requiring assistance completed. Patient did not have IV access cp4 during this emergency room visit. Administered Medications: No medications were administered Medication: 13:22 VIS not applicable for this client. cp4 Outcome: 13:14 Discharge ordered by MD. sb4 13:22 Discharged to home ambulatory, cp4 13:22 Condition: stable 13:22 Discharge instructions given to patient, Instructed on discharge instructions, follow up and referral plans. medication usage, Demonstrated understanding of instructions, follow-up care, medications, Prescriptions given X 1, 13:24 Patient left the ED. cp4 Signatures: Olga Guillen RN RN ko1 Roslyn Luke PA-C PA-C sb4 Yessi Lamb Milagro Aceves cp4
--- NOTE | 2023-03-02 13:15 | EDPHYS ---
Physician Documentation [facility] Name: Jodie Venegas Age: 47 yrs Sex: Female : 1975 Arrival Date: 03/02/2023 Time: 12:44 Bed IW10 Private MD: ED Physician Mateo Fair HPI: 03/02 14:59 This 47 yrs old Female presents to ER via Ambulatory with complaints of Flu sb4 Symptoms. 14:59 Patient reports sinus congestion and pain x1 week. She states that she has been trying sb4 to use [id number] medication without any relief. She states she only coughs when she gets the mucus in her throat. She denies any fever, chills, body aches, or sick contacts. No chest pain or shortness of breath. 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 - Social history:: Smoking status: Patient denies any tobacco usage or history of. ROS: 14:59 Constitutional: Negative for fever, chills, and weight loss, sb4 14:59 ENT: Positive for sinus congestion, sinus pain, 14:59 All other systems are negative, Exam: 14:59 Constitutional: This is a well developed, well nourished patient who is awake, alert, sb4 and in no acute distress. Eyes: Extra-ocular motions intact. Periorbital areas with no swelling, redness, or edema. Cardiovascular: Regular rate and rhythm with a normal S1 and S2. Respiratory: Lungs have equal breath sounds bilaterally, clear to auscultation and percussion. No rales, rhonchi or wheezes noted. No increased work of breathing, no retractions or nasal flaring. Abdomen/GI: Soft, non-tender, no distension. Skin: Warm, dry with normal turgor. Normal color with no rashes, no lesions, and no evidence of cellulitis. MS/ Extremity: Pulses equal, no cyanosis. Neurovascular intact. Full, normal range of motion. Neuro: Awake and alert, GCS 15, oriented to person, place, time, and situation. Motor strength 5/5 in all extremities. Sensory grossly intact. 14:59 Head/face: Sinus tenderness, that is moderate, is located over the right frontal sinus, left frontal sinus, right maxillary sinus and left maxillary sinus, 14:59 ENT: Exam is negative for TM abnormalities, epistaxis, enlarged tonsils, pharyngitis, Vital Signs: 13:07 BP 155 / 103; Pulse 98; Resp 18; Temp 98.3; Pulse Ox 97% ; ko1 MDM: 13:14 Patient medically screened. sb4 14:59 Differential diagnosis: viral Infection, bacterial infection, URI. Data reviewed: vital sb4 signs, nurses notes, and as a result, I will discharge patient. Counseling: I had a detailed discussion with the patient and/or guardian regarding the historical points, exam findings, and any diagnostic results supporting the discharge/admit diagnosis, to return to the emergency department if symptoms worsen or persist or if there are any questions or concerns that arise at home. Administered Medications: No medications were administered Disposition Summary: 03/02/23 13:14 Discharge Ordered Notes: Location: Home sb4 Problem: an ongoing problem sb4 Symptoms: are unchanged sb4 Condition: Stable sb4 Diagnosis - Acute Sinusitis sb4 Followup: sb4 - With: Emergency Department - When: As needed - Reason: Trouble breathing, Worsening of condition Discharge Instructions: - Discharge Summary Sheet sb4 - Sinusitis, Adult, [id number] sb4 Forms: - Medication Reconciliation Form sb4 - Thank You Letter sb4 - Antibiotic Education sb4 - Prescription Opioid Use sb4 - Patient Portal Instructions sb4 - Leadership Thank You Letter sb4 Prescriptions: - Augmentin 875-125 mg Oral Tablet - take 1 tablet ORAL route every 12 hours for 10 days; 20 tablet; Refills: 0, sb4 Product Selection Permitted Signatures: Olga Guillen, RN RN ko1 Roslyn Luke PA-C PA-C sb4
[2023-03-02 14:00] VITALS: BP 155/103; TEMP 98.3; O2SAT 97
== END 2023-03-02 13:24 | disposition home or self-care (01) ==
LOC: ER 12:44
DX: J01.90 Acute sinusitis, unspecified (principal)
CPT/HCPCS: 99283